=== PATIENT | male | born 1940 | race Caucasian/White ===

== ENCOUNTER → 2020-09-11 13:02 | Outpatient (CLI) | payer OTHER, SELFPAY ==
--- NOTE | 2020-09-11 13:13 | XR_ITS ---
PROCEDURE: XR CHEST 2V CLINICAL HISTORY: COUGH COMPARISON: No exams were available for comparison FINDINGS: Prior CABG with mild cardiomegaly. No CHF. Mild pleural thickening along the left lateral hemithorax with blunting of the left CP angle. There are no previous exams available to ascertain if this is acute or chronic. Right lung is clear. No acute bony abnormalities. IMPRESSION: Mild cardiomegaly. Blunting of the left CP angle which may be related to pleural effusion or chronic changes. Chest CT or left lateral decubitus exam may provide further evaluation. Dictated by: Marcello Figueroa MD 09/11/2020 15:10 Marcello Figueroa MD in [place] 09/11/2020 15:10
== END ==
PROVIDERS: PCP Family Medicine; Visit Provider Family Medicine
DX: R05 Cough (principal)
CPT/HCPCS: 71046

== ENCOUNTER → 2020-09-17 08:22 | Outpatient (CLI) | payer MEDICARE, SELFPAY ==
--- NOTE | 2020-09-17 08:33 | CT_ITS ---
PROCEDURE: CT CHEST WO CON CLINICAL INDICATION: COUGH Follow-up abnormal chest x-ray COMPARISON: CR XR CHEST 2V from 09/11/2020 TECHNIQUE: Axial images obtained with sagittal and coronal reformats. All CT scans at the facility use one or more dose reduction, viz: automated exposure control, ma/kV adjustment per patient size (including targeted exams where dose is matched to indication, i.e. head), or iterative reconstruction technique. FINDINGS: There has been a prior median sternotomy. Extensive coronary artery calcifications are present. Fat is present within the anterior wall the right lateral ventricle. This may be an incidental finding or could be seen with infarction. 3 mm noncalcified nodule right upper lobe anteriorly image 27. Calcified granuloma right upper lobe. There is some atelectatic or fibrotic changes present in the lung bases. There is pleural thickening in the left posterior hemithorax. Hyperdensities are present at this region may be due to calcifications or clips. Small loculated effusion noted posteriorly on the left. Atelectatic changes are present in the left lung base. No acute bony finding. IMPRESSION: Loculated left pleural effusion posteriorly. Punctate hyperdensities are present at this region may be due to clips or calcifications. There is some pleural thickening in the left lung base with mild left basilar atelectasis. Atelectatic or fibrotic changes are present in the right lung base. Dictated by: Marcello Figueroa MD 09/18/2020 14:50 Marcello Figueroa MD in [place] 09/18/2020 14:50
== END ==
PROVIDERS: PCP Family Medicine; Visit Provider Family Medicine
DX: R05 Cough (principal)
CPT/HCPCS: 71250

== ENCOUNTER 2020-09-18 14:29 | Observation (INO) | payer MEDICARE, SELFPAY ==
[2020-09-18] VITALS (17 sets, daily range): BP systolic 70–123; BP diastolic 45–94; PULSE 60–104; RESP 12–20; TEMP 36.6–36.8; O2SAT 92–97; BMI 34.3; BMI 34.4
--- NOTE | 2020-09-18 14:14 | ECG_ITS ---
APPROVED REPORT Exam: Resting ECG HR:95 bpm ECG Measurements Heart Rate 95 AXES [place] 202 P 234 QRSd 164 QRS -88 QT 430 T 23 QTc 540 Conclusion Unusual P axis, possible ectopic atrial rhythm with fusion complexes Right bundle branch block Left anterior fascicular block Bifascicular block Inferior infarct, age undetermined Anterolateral infarct, age undetermined Abnormal ECG Electronically signed by : Irvin Dejesus, 09/18/2020 20:43:58
--- NOTE | 2020-09-18 14:46 | HMH.EDGENADL ---
ED Disposition Clinical Impression: Hypotension Qualifiers: Hypotension type: unspecified hypotension type Qualified Code(s): I95.9 - Hypotension, unspecified Chest pain Qualifiers: Chest pain type: unspecified Qualified Code(s): R07.9 - Chest pain, unspecified Disposition: Admitted as Observation Condition on Discharge: Fair - Critical Care Critical Care Time: Yes Attestation: On 09/18/20, the high probability of a clinically significant, sudden or life threatening deterioration of the following system(s) required my full and direct attention, intervention and personal management. The time I documented below is in addition to time spent performing reported procedures but includes the following listed in this critical care notation. Total Critical Care Time: 30 Vital system(s) involved:: Circulatory Failure My critical care processes included: Assessment & monitoring of V/S, Initial and Re-exams, Data Review/Interpretation, Coordinating Care, Medication Orders and management, Documentation Medical Decision Making - Enoc Inquiry Pt receiving controlled substance: No Vital Signs: 09/18/20 14:34 09/18/20 15:00 09/18/20 15:30 Temperature 97.9 F Temperature Source Oral Pulse Rate 68 60 Pulse Rate [Right Brachial] 104 H Respiratory Rate 20 20 18 Blood Pressure 82/52 L 78/51 L Blood Pressure [Right Arm] 90/62 L Blood Pressure Mean 59 57 Blood Pressure Mean [Right Arm] 71 Blood Pressure Source Blood Pressure Source [Right Arm] Automatic Cuff 02 Sat by Pulse Oximetry 96 93 L 96 Oxygen Delivery Method Room Air 09/18/20 15:46 09/18/20 15:47 09/18/20 16:00 Temperature Temperature Source Pulse Rate 85 85 89 Pulse Rate [Right Brachial] Respiratory Rate 18 18 17 Blood Pressure 70/45 L 71/47 L 96/56 L Blood Pressure [Right Arm] Blood Pressure Mean 49 52 Blood Pressure Mean [Right Arm] Blood Pressure Source Manual Cuff/ Auscultation Blood Pressure Source [Right Arm] 02 Sat by Pulse Oximetry 95 95 94 L Oxygen Delivery Method Room Air 09/18/20 16:30 09/18/20 16:34 09/18/20 17:00 Temperature Temperature Source Pulse Rate 87 86 81 Pulse Rate [Right Brachial] Respiratory Rate 18 14 14 Blood Pressure 103/62 L 108/70 L 111/71 Blood Pressure [Right Arm] Blood Pressure Mean 79 78 Blood Pressure Mean [Right Arm] Blood Pressure Source Automatic Cuff Blood Pressure Source [Right Arm] 02 Sat by Pulse Oximetry 92 L 94 L 93 L Oxygen Delivery Method Room Air Room Air 09/18/20 17:15 Temperature Temperature Source Pulse Rate 74 Pulse Rate [Right Brachial] Respiratory Rate 12 Blood Pressure Blood Pressure [Right Arm] Blood Pressure Mean Blood Pressure Mean [Right Arm] Blood Pressure Source Blood Pressure Source [Right Arm] 02 Sat by Pulse Oximetry 93 L Oxygen Delivery Method - Lab Data Lab Results 09/18/20 14:35: WBC 11.0 H, RBC 4.52 L, Hgb 15.2, Hct 45.7, MCV 101.2 H, MCH 33.6 H, MCHC 33.2, RDW 13.3, Plt Count 231, MPV 8.1, Neut % (Auto) 76.9, Lymph % (Auto) 14.5, [place] % (Auto) 7.1, Eos % (Auto) 1.1, Baso % (Auto) 0.4, Neut # (Auto) 8.5 H, Lymph # (Auto) 1.6, [place] # (Auto) 0.8, Eos # (Auto) 0.1, Baso # (Auto) 0.1 09/18/20 14:35: Sodium 137, Potassium 4.1, Chloride 100, Carbon Dioxide 30, Anion Gap 11.1, BUN 33 H, Creatinine 1.80 H, Estimated Creat Clear 54, Estimated GFR 37 L, Est GFR ( Amer) 44 L, Glucose 161 H, Calcium 9.5, Troponin I < 0.01 09/18/20 14:35: NT-Pro-B Natriuret Pep 1770 H 09/18/20 16:00: Lactate 1.1 Result diagrams: 09/18/20 14:35 09/18/20 14:35 Orders (Tests/Meds): ED MEDICATIONS Generic Name Dose Route Start Last Admin Trade Name Freq PRN Reason Stop Dose Admin Sodium Chloride 1,000 mls @ 999 mls/hr 09/18/20 16:00 09/18/20 16:01 Sod Chlor 0.9% 1000ml Bag IV 09/18/20 17:00 999 mls/hr .Q1H1M BETSY Administration Iopamidol 50 ml 09/18/20 17:33 09/18/20 17:35 Iopamidol-370 (76%);100
[2020-09-18 15:08] LABS: Basophils # 0.1 K/mm3 (0-0.2); Basophils % 0.4 % (0.1-2.0); Eosinophils # 0.1 K/mm3 (0.0-0.4); Eosinophils % 1.1 % (0.1-12.0); Hematocrit 45.7 % (42.0-52.0); Hemoglobin 15.2 g/dL (14.1-18.0); Lymphocytes # 1.6 K/mm3 (0.7-4.5); Lymphocytes % 14.5 % (10-50); Mean Corpuscular HGB Conc 33.2 g/dL (31.8-35.4); Mean Corpuscular Hemoglobin 33.6 pg (27.0-31.2); Mean Corpuscular Volume 101.2 fl (80-94); Mean Platelet Volume 8.1 fl (7.4-10.4); Monocytes # 0.8 K/mm3 (0.1-1.0); Monocytes % 7.1 % (1.7-9.3); Neutrophils # 8.5 K/mm3 (1.8-7.8); Neutrophils % 76.9 % (37.0-80.0); Platelet Count 231 K/mm3 (142-424); Red Blood Count 4.52 M/mm3 (4.60-6.20); Red Cell Distribution Width 13.3 % (11.5-17.5)
[2020-09-18 15:11] LABS: Chloride 100 mmol/L (98-107); Potassium 4.1 mmoL/L (3.5-5.1); Sodium 137 mmol/L (136-145)
[2020-09-18 15:14] LABS: Anion Gap 11.1 mEq/L (5-15); Blood Urea Nitrogen 33 mg/dl (9-20); Carbon Dioxide 30 mmol/L (22.0-30.0); Creatinine Clearance Estimated 54 mL/min (50-200); Estimated Glomerular Filt Rate 37 ml/min (>60); GFR (African American) 44 ML/MIN (>60)
[2020-09-18 15:15] LABS: Calcium 9.5 mg/dl (8.4-10.2); Glucose 161 mg/dl (74-100)
[2020-09-18 15:37] LABS: Troponin I < 0.01 ng/ml (0.00-0.034)
--- NOTE | 2020-09-18 15:54 | XR_ITS ---
PROCEDURE: XR CHEST PORTABLE CLINICAL HISTORY: WEAKNESS Chest pain COMPARISON: CR XR CHEST 2V from 09/11/[address] CHEST WO CON from 09/17/2020 FINDINGS: There has been a prior CABG. There is mild cardiomegaly without failure. The lungs are clear without infiltrates, suspicious nodules, or pleural effusions. No acute bony abnormalities. IMPRESSION: Cardiomegaly otherwise negative Dictated by: Marcello Figueroa MD 09/18/2020 16:57 Marcello Figueroa MD in [place] 09/18/2020 16:57
--- NOTE | 2020-09-18 16:22 | HMH.CNCARD ---
History of Present Illness Consult date: 09/18/20 Requesting physician: Anirudh Yan Consult reason: chest pain Chief complaint: chest pain History of present illness: 80-year-old male presented to ED with complaints of chest pain. Patient states he was currently seen by his PCP and was told to go to the emergency room due to the possibility of having a heart attack. Patient complains of discomfort of the left arm for the past few days. States at times the discomfort will become intense but then seems to resolve with rest. Patient states increased shortness of breath that began a few days ago. Patient states the last time he was having increased shortness of breath he was told he had an irregular heart rhythm and was prescribed Xarelto. Patient states that was several years ago. 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 Patient states he is followed by cardiology at [facility]. States he did see his director data management a few months ago and was told he was in good health. Patient states he has not had a complete cardiac work-up for a few years. Patient is hypotensive today. Patient denies dizziness or palpitations. EKG revealed unusual P axis, right bundle branch block, inferior infarct, anterior lateral infarct with a heart rate of 95 bpm. This rhythm does resembles pulmonary hypertension or possible PE. Would recommend CTA of the chest to rule out PE. Patient denies history of hypertension or hyperlipidemia. Patient states he does have history of COPD and has currently been treated for bronchitis with antibiotics in the past few weeks. Patient denies a cough. No swelling noted of the lower extremities. Patient admits to alcohol consumption of 2 shot glasses of bourbon a day. Patient denies tobacco use. Troponin x1 is negative. Discussed plan of care with Dr. Mclean. In review of the ECG rhythm, this could possibly present pulmonary hypertension or possible PE. Recommend CTA of the chest to rule out PE. Will obtain echocardiogram to assess LV function and valve status. Pending on the results of the CTA and echocardiogram, medication and treatment therapies may be recommended. Please notify cardiology of any changes in patient status. Thank you for allowing cardiology to participate in the care of this patient. [facility] History I have reviewed the patient's past medical history: Yes *Have you ever received a pneumonia vaccine?: Yes *Have you received a flu vaccine this season?: Yes - *Social History *Occupational Status:: other *Travel in the last 8 weeks: Inside the [place] Family Hx:: Unable to obtain Meds Home Medications Medication Instructions Recorded Confirmed Type ALPRAZolam [Alprazolam 0.25mg 0.25 mg PO DIRECTED PRN 09/18/20 09/18/20 History Tab] Citalopram Hydrobromide 20 mg PO DAILY 09/18/20 09/18/20 History [Citalopram 20mg Tablet] Isosorbide Mononitrate [Imdur 60mg 60 mg PO DAILY 09/18/20 09/18/20 History ER tablet] [place]-3S/Dha/Epa/Fish Oil [Fish 1 each PO DAILY 09/18/20 09/18/20 History Oil 1,000 mg Softgel] Rivaroxaban [Xarelto 10mg tablet] 10 mg PO DAILY 09/18/20 09/18/20 History Simvastatin 20 mg PO DAILY 09/18/20 09/18/20 History Tamsulosin HCl 0.4 mg PO DAILY 09/18/20 09/18/20 History Temazepam [Restoril] 30 mg PO DAILY 09/18/20 09/18/20 History lisinopriL [Lisinopril] 20 mg PO DAILY 09/18/20 09/18/20 History Exam Vital signs and Labs for Last 24 Hours: Temp Pulse Resp BP Pulse Ox 97.9 F 85 18 71/47 L 95 09/18/20 14:34 09/18/20 15:47 09/18/20 15:47 09/18/20 15:47 09/18/20 15:47 Laboratory Results - last 24 hr 09/18/20 14:35: WBC 11.0 H, RBC 4.52 L, Hgb 15.2, Hct 45.7, MCV 101.2 H, MCH 33.6 H, MCHC 33.2, RDW 13.3, Plt Count 231, MPV 8.1, Neut % (Auto) 76.9, Lymph % (Auto) 14.5, [place] % (Auto) 7.1, Eos % (Auto) 1.1, Baso % (Auto) 0.4, Neut # (Auto) 8.5 H, Lymph # (Auto) 1.6, [place] # (Auto) 0.8, Eos # (Auto) 0.1, Baso # (Auto) 0.1
[2020-09-18 16:30] LABS: Lactic Acid 1.1 mmol/L (0.7-2.1)
--- NOTE | 2020-09-18 16:52 | CT_ITS ---
PROCEDURE: CT ANGIO CHEST CLINCIAL INDICATION: r/o pe Shortness of breath COMPARISON: CT CT CHEST WO ELEANOR from 09/17/2020 TECHNIQUE: IV Contrast: 50ML Isovue 370 Axial images obtained with sagittal and coronal reformats. All CT scans at the facility use one or more dose reduction, viz: automated exposure control, ma/kV adjustment per patient size (including targeted exams where dose is matched to indication, i.e. head), or iterative reconstruction technique. FINDINGS: No evidence of aortic aneurysm or dissection. No evidence of pulmonary embolus. There has been a prior median sternotomy with CABG. There is mild cardiomegaly. Fatty infiltration noted in the left cardiac apex consistent with an old infarction with some thickening of the wall. There is severe coronary artery calcification. There is evidence of old granulomatous disease. There is some minimal paraseptal emphysematous changes in the lung apices. Noncalcified subpleural pulmonary nodule noted in the right upper lobe anteriorly image 35 at 4 mm. Fibrotic/atelectatic changes are present in the right lower lobe posteriorly. Small loculated pleural effusion noted in the left lung base posteriorly with some punctate calcifications. This is unchanged. Upper abdominal images show colonic diverticulosis. No evidence of diverticulitis. There is stranding of the perinephric renal fat which is nonspecific. IMPRESSION: 1. No evidence of pulmonary embolus. 2. Prior CABG with severe coronary artery calcification. 3. No change in the loculated pleural effusion in the left lung base 4. 4 mm right upper lobe nodule nonspecific. Consider six-month follow-up to confirm stability. Dictated by: Marcello Figueroa MD 09/19/2020 06:15 Marcello Fiugeroa MD in [place] 09/19/2020 06:15
--- NOTE | 2020-09-18 16:57 | PC.NURSE ---
Dr. Yan speaking with Rios Odonnell
[2020-09-18 17:06] LABS: NT Pro Brain Natriuretic Pep. 1770 pg/mL (0-450)
--- NOTE | 2020-09-18 17:24 | PC.NURSE ---
pt gone to ct
--- NOTE | 2020-09-18 17:44 | PC.NURSE ---
pt back from ct
--- NOTE | 2020-09-18 18:36 | PC.NURSE ---
ILIANA COCHRAN spoke with Dr. Mclean
[2020-09-18 19:03] LABS: Troponin I < 0.01 ng/ml (0.00-0.034)
--- NOTE | 2020-09-18 19:23 | PC.NURSE ---
Called for update on covid test, 30 min left. tech here for transfer via wheelchair to 2nd floor in full PPE for pending covid
--- NOTE | 2020-09-18 19:32 | PC.NURSE ---
PT ARRIVED TO FLOOR VIA W/C FROM ED W/STAFF AT 193
[2020-09-19] VITALS (7 sets, daily range): BP systolic 109–155; BP diastolic 51–89; PULSE 60–100; RESP 16–18; TEMP 36.4–36.8; O2SAT 93–95; BMI 34.2; BMI 34.3
--- NOTE | 2020-09-19 03:03 | ECG_ITS ---
APPROVED REPORT Exam: Resting ECG HR:86 bpm ECG Measurements Heart Rate 86 AXES PA P 85 QRSd 148 QRS -48 QT 412 T 45 QTc 493 Conclusion Atrial flutter with variable AV block with premature ventricular or aberrantly conducted complexes Right bundle branch block Left anterior fascicular block Bifascicular block Inferior infarct, age undetermined Anterolateral infarct, age undetermined Abnormal ECG Electronically signed by : Irvin Dejesus, 09/19/2020 17:46:29
--- NOTE | 2020-09-19 04:59 | PC.NURSE ---
Patient admitted to the floor at 1935 and was admitted for Chest Pain. Patient did not c/o of CP upon arrival to floor. 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 Patient touched this nurse on the hips with both hands and stated I better watch it because this thing is getting big Patient received Cardizem 240 mg PO for new onset of A Flutter (see Provider Notification), most recent ECG states indicates A Flutter resolved. Patient resting comfortably with eyes closed. Will continue to monitor for any acute changes.
--- NOTE | 2020-09-19 07:11 | HMH.HP ---
*Admission Date: 09/18/20 *Chief complaint: Chest pain *History of present illness: 80-year-old male seen in the office yesterday in follow-up for bronchitis with development of some left axillary chest pain. In the office he was seen by Dr. Fan who felt like the patient did not look well and had concerns based on an abnormal EKG and he was sent over to the emergency department for rapid evaluation. Initial troponin in the emergency department was unremarkable. Cardiology did not feel like the source of pain was cardiac in nature and recommended evaluation for pulmonary embolism. Patient underwent CTA which was negative for pulmonary embolism and he was admitted for his chest pain. Overnight patient is had serial negative troponins. This morning he denies any chest pain. He reports chest pain was in the left axilla and was nonradiating. He did note dyspnea on exertion. He denied orthopnea. Patient has a history of coronary artery disease with CABG in 1994. Is at that time when he quit smoking. Patient has followed up routinely with his sumac tanner Dr. Cortez with his last visit being 1 month ago. Patient was also found to have some mild acute kidney injury. Overnight patient ruled out for admission but did have an episode of a flutter that responded to administration of oral diltiazem [facility] History I have reviewed the patient's past medical history: Yes Medical History: Reports:: Atherosclerotic Heart Disease, Hypertension, Myocardial Infarction Denies:: Diabetes Mellitus Type 2 *Have you ever received a pneumonia vaccine?: Yes *Have you received a flu vaccine this season?: Yes Other Surgeries: Yes: Appendectomy, Other (tonsilectomy) - *Social History Smoking Status: Never smoker Alcohol Intake: never *Occupational Status:: retired Household Members: spouse *Travel in the last 8 weeks: None Family Hx:: Cancer, Heart Attack Review of Systems - Constitutional Denies anorexia, Denies body ache(s) - Eyes Reports blind spots, Reports blurry vision - ENT Denies abnormal hearing, Denies change in voice - *Cardiovascular Reports chest pain, Reports shortness of breath, Reports shortness of breath with activity - *Respiratory Reports chest congestion, Reports cough, Reports shortness of breath, Reports shortness of breath with activity, Denies change in phlegm color, Denies coughing up blood, Denies pain on inspiration, Denies pain with cough - *Gastrointestinal Denies abdominal pain, Denies belching, Denies bloating - *Genitourinary Denies difficulty urinating, Denies difficulty with ejaculations - *Musculoskeletal Denies abnormal walking, Denies joint pain - Integumentary/Breasts Denies hair loss, Denies bleeding lesions - *Neurologic Denies abnormal walking, Denies abnormal hearing - Psychiatric Denies abnormal sleep pattern Meds Home Medications Medication Instructions Recorded Confirmed Type ALPRAZolam [Alprazolam 0.25mg 0.25 mg PO DIRECTED PRN 09/18/20 09/18/20 History Tab] Citalopram Hydrobromide 20 mg PO DAILY 09/18/20 09/18/20 History [Citalopram 20mg Tablet] Isosorbide Mononitrate [Imdur 60mg 60 mg PO HS 09/18/20 09/18/20 History ER tablet] [place]-3S/Dha/Epa/Fish Oil [Fish 1 each PO DAILY 09/18/20 09/18/20 History Oil 1,000 mg Softgel] Rivaroxaban [Xarelto 10mg tablet] 10 mg PO DAILY 09/18/20 09/18/20 History Simvastatin 20 mg PO HS 09/18/20 09/18/20 History Tamsulosin HCl 0.4 mg PO DAILY 09/18/20 09/18/20 History Temazepam [Restoril] 30 mg PO HS 09/18/20 09/18/20 History lisinopriL [Lisinopril] 20 mg PO HS 09/18/20 09/18/20 History Allergies Allergy/AdvReac Type Severity Reaction Status Date / Time No Known Allergies Allergy Verified 09/18/20 16:49 Exam Vital signs and Labs for Last 24 Hours: Temp Pulse Resp BP Pulse Ox 97.8 F 79 17 155/89 H 95 09/19/20 04:00 09/19/20 04:00 09/19/20 04:00 09/19/20 04:00 09/19/20 04:00 Magdalena
[2020-09-19 07:38] LABS: Basophils % 0.3 % (0.1-2.0); Eosinophils # 0.2 K/mm3 (0.0-0.4); Eosinophils % 1.6 % (0.1-12.0); Hematocrit 42.8 % (42.0-52.0); Hemoglobin 14.1 g/dL (14.1-18.0); Lymphocytes # 1.8 K/mm3 (0.7-4.5); Lymphocytes % 15.9 % (10-50); Mean Corpuscular Hemoglobin 32.5 pg (27.0-31.2); Mean Corpuscular Volume 98.6 fl (80-94); Mean Platelet Volume 8.1 fl (7.4-10.4); Monocytes # 0.8 K/mm3 (0.1-1.0); Monocytes % 7.3 % (1.7-9.3); Neutrophils # 8.3 K/mm3 (1.8-7.8); Neutrophils % 74.8 % (37.0-80.0); Platelet Count 190 K/mm3 (142-424); Red Blood Count 4.34 M/mm3 (4.60-6.20); Red Cell Distribution Width 13.2 % (11.5-17.5); White Blood Count 11.1 K/mm3 (4.8-10.8)
[2020-09-19 07:44] LABS: Anion Gap 10.1 mEq/L (5-15); Blood Urea Nitrogen 26 mg/dl (9-20); Calcium 8.9 mg/dl (8.4-10.2); Carbon Dioxide 28 mmol/L (22.0-30.0); Chloride 103 mmol/L (98-107); Creatinine Clearance Estimated 88 mL/min (50-200); Estimated Glomerular Filt Rate 65 ml/min (>60); GFR (African American) 78 ML/MIN (>60); Glucose 104 mg/dl (74-100); Potassium 4.1 mmoL/L (3.5-5.1); Sodium 137 mmol/L (136-145)
--- NOTE | 2020-09-19 08:46 | HMH.PHAVTE ---
[facility] Pharmacy VTE Monitoring - Patient Demographics Admission date: 09/18/20 Report Date: 09/19/20 Time: 08:47 Allergies/Adverse Reactions: Patient Allergies No Known Allergies Allergy (Verified 09/18/20 16:49) Height: 1.83 m Weight: 114.532 kg Patient Problems: Current Active Problems Hypotension (Acute) CAD (coronary artery disease) (Acute) S/P CABG (coronary artery bypass graft) (Acute) Pleural effusion, left (Acute) Atrial flutter (Acute) Atypical chest pain (Acute) - VTE Risk Labs: VTE Related Lab Results Hgb 14.1 g/dL (14.1-18.0) 09/19/20 07:26 Hct 42.8 % (42.0-52.0) 09/19/20 07:26 Plt Count 190 K/mm3 (142-424) 09/19/20 07:26 BUN 26 mg/dl (9-20) H 09/19/20 07:26 Creatinine 1.10 mg/dl (0.66-1.25) D 09/19/20 07:26 Estimated Creat Clear 88 mL/min (50-200) 09/19/20 07:26 Was VTE Risk Assessment Performed: Yes VTE Score: 1 VTE Risk Level: Very Low Risk - Prophylaxis VTE Prophylaxis Ordered?: Yes Types of VTE Prophylaxis: TEDS Knee High, Pharmacological Pharmacologic Type: Other (XARELTO)
--- NOTE | 2020-09-19 08:54 | HMH.PHAINT ---
home medication list verified using list from outpatient pharmacy and cardiology office
--- NOTE | 2020-09-19 09:30 | PC.NURSE ---
patient had xarelto so unable to have heart cath today and will do tomorrow.
--- NOTE | 2020-09-19 10:08 | HMH.PNCARD ---
Subjective Date: 09/19/20 Time: 09:00 Principal diagnosis: Chest pain Interval history: 80-year-old male presented to ED with complaints of chest pain yesterday afternoon. Patient states he had currently been seen by his PCP and was told to go to the emergency room due to the possibility of having a heart attack. Patient complains of discomfort of the left arm for the past few days. States at times the discomfort will become intense but then seems to resolve with rest. Patient states increased shortness of breath that began a few days ago. Patient states the last time he was having increased shortness of breath he was told he had an irregular heart rhythm and was prescribed Xarelto. Patient states that was several years ago. 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 Patient states he is followed by cardiology at [facility]. 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 Patient states he has not had a complete cardiac work-up for a few years. Patient is hypotensive today. Patient denies dizziness or palpitations. Patient denies chest pain, tightness or pressure. Patient does continue to planing of shortness of breath especially with exertion. No swelling noted of the lower extremities noted. Patient denies dizziness or palpitations. Vital signs are stable. gig tender reveals sinus rhythm with right bundle branch block. PCP stated this a.m., that patient had an episode of atrial flutter and was given Cardizem. Patient has now converted over to sinus rhythm. CTA of the chest was performed due to possibility of pulmonary emboli. There was no evidence of pulmonary embolus but there was noted a 4 mm right upper lobe nodule. This will be under the management and deferred to PCP. Echocardiogram was performed this a.m. waiting the results. Due to patient having his Xarelto this a.m., we will postpone his left heart catheterization until tomorrow morning. Patient is not to have any more Xarelto until after his procedure tomorrow. Discussed left heart catheterization with patient and . Discussed risk and benefits of the left heart catheterization. Patient verbalized understanding and is agreeable to procedure. CTA of chest:IMPRESSION: 1. No evidence of pulmonary embolus. 2. Prior CABG with severe coronary artery calcification. 3. No change in the loculated pleural effusion in the left lung base 4. 4 mm right upper lobe nodule nonspecific. Consider six-month follow-up to confirm stability. Thank you for allowing cardiology to participate in the care of this patient. Exam Vital signs and Labs for Last 24 Hours: Temp Pulse Resp BP Pulse Ox 98.1 F 76 16 127/77 93 L 09/19/20 08:00 09/19/20 08:00 09/19/20 08:00 09/19/20 08:00 09/19/20 08:00 Laboratory Results - last 24 hr 09/18/20 14:35: WBC 11.0 H, RBC 4.52 L, Hgb 15.2, Hct 45.7, MCV 101.2 H, MCH 33.6 H, MCHC 33.2, RDW 13.3, Plt Count 231, MPV 8.1, Neut % (Auto) 76.9, Lymph % (Auto) 14.5, [place] % (Auto) 7.1, Eos % (Auto) 1.1, Baso % (Auto) 0.4, Neut # (Auto) 8.5 H, Lymph # (Auto) 1.6, [place] # (Auto) 0.8, Eos # (Auto) 0.1, Baso # (Auto) 0.1 09/18/20 14:35: Sodium 137, Potassium 4.1, Chloride 100, Carbon Dioxide 30, Anion Gap 11.1, BUN 33 H, Creatinine 1.80 H, Estimated Creat Clear 54, Estimated GFR 37 L, Est GFR ( Amer) 44 L, Glucose 161 H, Calcium 9.5, Troponin I < 0.01 09/18/20 14:35: NT-Pro-B Natriuret Pep 1770 H 09/18/20 16:00: Lactate 1.1 09/18/20 18:25: Troponin I < 0.01 09/19/20 07:26: WBC 11.1 H, RBC 4.34 L, Hgb 14.1, Hct 42.8, MCV 98.6 H, MCH 32.5 H, MCHC 33.0, RDW 13.2, Plt Count 190, MPV 8.1, Neut % (Auto) 74.8, Lymph % (Auto) 15.9, [place] % (Auto) 7.3, Eos % (Auto) 1.6, Baso % (Auto) 0.3, Neut # (Auto) 8.3 H, Lymph # (Auto) 1.8, [place] # (Auto) 0.8, Eos # (Auto) 0.2, Baso # (Auto) 0.0 09/19/20 07:26: Sodium 137, Potassium 4.1, Chloride 103, Carbon Dioxide 28, Anion Gap 10.1, BUN 26 H, Creatinin
--- NOTE | 2020-09-19 17:49 | PC.NURSE ---
Pt has been pleasant this shift. Heart cath rescheduled for tomorrow d/t pt taking xarelto this morning. Pt has been in chair for the greater part of the day. Pt continues on RA. Lung sounds CTA. Pt has been NSR/ Sinus arrhythmia on tele this shift. No other acute changes or complaints at this time.
--- NOTE | 2020-09-19 20:00 | CA_ITS ---
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 Velocity 290.00 cm/s RAP Estimate 10.00 mmHg RVSP 43.70 mmHg Left Ventricle Left atrium is mildly enlarged, left ventricle is normal size, mild concentric left ventricular hypertrophy, visually estimated ejection fraction 50% with no regional wall motion abnormality, diastolic parameters are inconclusive. Right Ventricle Right atrium and right ventricle are mildly enlarged with normal contractility. Aortic Valve Aortic valve is minimally thickened and fibrosed, there is no aortic stenosis or aortic insufficiency. Mitral Valve Mitral valve grossly normal, there is trace mitral regurgitation. Tricuspid Valve Tricuspid grossly normal, there is trace tricuspid regurgitation, tricuspid regurgitation jet velocity is inadequate for calculation of the right ventricular systolic pressure. Pulmonic Valve Pulmonic valve is poorly visualized. Great Vessels Aortic root is normal size. Pericardium No significant pericardial effusion noted. Conclusion 1. Mildly enlarged left atrium, normal left ventricular size, mild concentric left ventricular hypertrophy, visually estimated ejection fraction 50% with no obvious regional wall motion abnormality, diastolic parameters are inconclusive. 2. Mildly enlarged right atrium and right ventricle, contractility of the right ventricle is normal. 3. Trace mitral and tricuspid regurgitation. 4. No significant pericardial effusion noted. Electronically signed by : Ehsan Rodriguez, 09/20/2020 15:01:52
--- NOTE | 2020-09-19 20:05 | PC.NURSE ---
Patient was very irritated and agitated when in room for assessment. Patient has refused all medications with the exception of fluids. N/S 100 ml Hour. Will continue to monitor for any acute changes.
--- NOTE | 2020-09-19 22:27 | ECG_ITS ---
APPROVED REPORT Exam: Resting ECG HR:68 bpm ECG Measurements Heart Rate 68 AXES VA P 73 QRSd 144 QRS 5 QT 460 T 51 QTc 489 Conclusion Atrial flutter with variable AV block with premature ventricular or aberrantly conducted complexes Right bundle branch block Inferior infarct, age undetermined Anterolateral infarct, age undetermined Abnormal ECG Electronically signed by : Irvin Dejesus, 09/21/2020 18:13:22
--- NOTE | 2020-09-19 22:33 | PC.NURSE ---
Patient in A Flutter on monitor, ECG confirmed. Called MD to report. Awaiting call back for orders.. Will continue to monitor for any acute changes
[2020-09-20] VITALS: BP 128/71; PULSE 60; PULSE 65; RESP 16; TEMP 36.6; O2SAT 94
--- NOTE | 2020-09-20 00:31 | PC.NURSE ---
2330 received patient from room 215, patient has been aggitated and impulsive prior to arriving to room 219. patient converted to atrial flutter. upon arriving to room 219 patient in atrial flutter 4:1 conduction with rate in the 60s and 70s. dr. ma paged to clarify amiodarone drip. dr. ma notified of heart rate of 60s-70s, sr. anil asked what previous rate had been, was reported 60s to 70s in aflutter. communication order received to hold amiodarone at this time.
--- NOTE | 2020-09-20 02:33 | PC.NURSE ---
0130 patient extremely aggitation, up out of bed, pulling monitoring devices off and threatening to hit staff. decreased stimulation from room by removing extra staff members and allowing patient to voice concerns. patient disoriented to place, time and situation.0140 able to get patient to take po xanax as ordered.
[2020-09-20 04:00] VITALS: BP 143/86; PULSE 60; PULSE 61; RESP 17; TEMP 36.6; O2SAT 95
[2020-09-20 05:03] VITALS: BMI 34.1
--- NOTE | 2020-09-20 05:42 | PC.NURSE ---
shift summary patient was transferred to stepdown to start amiodarone drip for atrial flutter. rate was 60s to 70s after amiodarone order clarified amiodarone drip was held and stepdown status not needed. patient has remained on recorder helper seismograph showing atrial flutter with rate sustaining 60-70s. vs have been wnl. continues to be on r/a. denies cp, soa, nausea,vomiting. has been anxious, restless, aggitated, impulsive and at times borderline combative. treated with xanax, patient remains confused, restless and impulsive but able to redirect patient. breath sound clear throughout. voiding clear yellow urine. bed alarm on, call light within reach, instructed multiple times to not attempt to get out of bed without assistance. voiced understanding but needs frequent redirection.
--- NOTE | 2020-09-20 07:17 | HMH.ACPN2 ---
Internal Medicine - PN: Subj *Date: 09/20/20 *Time: 07:17 Interval history: Patient was restless most of the night. Argumentative with staff. Required frequent reorientation and redirection. This morning he is pleasant and conversant to talk to. He is oriented to person, month and even place momentarily. He is frequently trying to get out of the bed or out of his chair and I do hear the patient telling staff he needs to go upstairs. Exam Vital signs and Labs for Last 24 Hours: Temp Pulse Resp BP Pulse Ox 97.9 F 61 17 143/86 H 95 09/20/20 04:00 09/20/20 04:00 09/20/20 04:00 09/20/20 04:00 09/20/20 04:00 Laboratory Results - last 24 hr 09/19/20 07:26: WBC 11.1 H, RBC 4.34 L, Hgb 14.1, Hct 42.8, MCV 98.6 H, MCH 32.5 H, MCHC 33.0, RDW 13.2, Plt Count 190, MPV 8.1, Neut % (Auto) 74.8, Lymph % (Auto) 15.9, Burnett % (Auto) 7.3, Eos % (Auto) 1.6, Baso % (Auto) 0.3, Neut # (Auto) 8.3 H, Lymph # (Auto) 1.8, Burnett # (Auto) 0.8, Eos # (Auto) 0.2, Baso # (Auto) 0.0 09/19/20 07:26: Sodium 137, Potassium 4.1, Chloride 103, Carbon Dioxide 28, Anion Gap 10.1, BUN 26 H, Creatinine 1.10 D, Estimated Creat Clear 88, Estimated GFR 65, Est GFR ( Amer) 78 D, Glucose 104 H D, Calcium 8.9 I & O for Last 24 hours: Intake & Output 09/17/20 09/18/20 09/19/20 09/20/20 11:59 11:59 11:59 11:59 Intake Total 2700 / 2700 480 / 480 Output Total 1000 / 1000 800 / 800 Balance 1700 / 1700 -320 / -320 Weight 252 lb 8 oz 252 lb - Constitutional no acute distress - *Routine Respiratory Exam Present: crackles (Left base) - *Routine Cardiovascular Exam Present: RRR - *Routine Abdominal Exam Present: soft, normoactive bowel sounds. Absent: tenderness - *Routine Extremities Exam Absent: cyanosis, clubbing, edema Assessment and Plan (1) Atypical chest pain Status: Acute Category: Medical Code(s): R07.89 - Other chest pain (2) CAD (coronary artery disease) Status: Acute Category: Medical Code(s): I25.10 - Atherosclerotic heart disease of [place] coronary artery without angina pectoris (3) S/P CABG (coronary artery bypass graft) Status: Acute Category: Surgical Code(s): Z95.1 - Presence of aortocoronary bypass graft (4) Pleural effusion, left Status: Acute Category: Medical Code(s): J90 - Pleural effusion, not elsewhere classified (5) Atrial flutter Status: Acute Category: Medical Code(s): I48.92 - Unspecified atrial flutter (6) Hypotension Status: Acute Qualifiers: Hypotension type: unspecified hypotension type Qualified Code(s): I95.9 - Hypotension, unspecified Category: Medical Code(s): I95.9 - Hypotension, unspecified - Assessment and plan all Dx Assessment and Plan for all problems:: 1. Left heart catheterization today. 2. If no intervention is required from [facility] patient will be discharged home later today. Do believe his mental status changes are secondary to sundowning. Patient was given lorazepam 1 mg this morning
[2020-09-20 07:42] VITALS: PULSE 90
[2020-09-20 08:00] VITALS: BP 143/85; PULSE 92; RESP 18; TEMP 36.6; O2SAT 93
--- NOTE | 2020-09-20 09:44 | P.PN_ITS ---
Subjective Date: 09/20/20 Time: 09:44 Principal diagnosis: Chest pain Interval history: 80-year-old white male sitting in chair in no acute distress but is quickly agitated when discussing current situation and plans for any procedures. Patient's is in the room with him and states that she has never seen him this agitated or upset before. Patient stated [place] is in [place] and these women are trying to trick me . Patient is very fixated on the fact that he was moved from room 215-219 last evening and does not understand why. When trying to explain that his heart rate became irregular and we needed to administer a different medication he did not want to hear it and states he is going to go home and go to [place] to have further care. Patient's heart rate after being moved to 219 was noted to be 60 bpm and the medication (amiodarone) was canceled. Shortly after this exchange, the patient's daughter did arrive and I left the room to allow her to try to calm him down. Patient was given a dose of Xanax during the night and Ativan earlier this m orning which may be exacerbating some underlying confusion. I explained to the and the daughter that I did not feel comfortable having the patient have a cardiac catheterization in his current mental state. We will cancel it today and tentatively schedule it for tomorrow if the patient is back at his baseline and wishes to proceed with the procedure here at this hospital. Exam Vital signs and Labs for Last 24 Hours: Temp Pulse Resp BP Pulse Ox 97.8 F 92 H 18 143/85 H 93 L 09/20/20 08:00 09/20/20 08:00 09/20/20 08:00 09/20/20 08:00 09/20/20 08:00 I & O for Last 24 hours: Intake & Output 09/17/20 09/18/20 09/19/20 09/20/20 11:59 11:59 11:59 11:59 Intake Total 2700 / 2700 480 / 480 Output Total 1000 / 1000 800 / 800 Balance 1700 / 1700 -320 / -320 Weight 252 lb 8 oz 252 lb Narrative: Not examined due to the patient's confused and agitated state Telemetry appears to show sinus rhythm at about 100 bpm. Progress Note: A&P (1) Atypical chest pain Status: Acute (2) CAD (coronary artery disease) Status: Acute (3) S/P CABG (coronary artery bypass graft) Status: Acute (4) Pleural effusion, left Status: Acute (5) Atrial flutter Status: Acute (6) Hypotension Status: Acute Assessment and Plan for All Diagnoses:: 1. Cardiac catheterization canceled for today. 2. Acute confusional state likely exacerbated by antianxiety medication given overnight. 3. Continue diltiazem and pravastatin. Holding Xarelto for planned cardiac catheterization or tentatively plan cardiac catheterization tomorrow.
--- NOTE | 2020-09-20 10:15 | PC.NURSE ---
Patient will need a wheel chair rather than a cane/walker due to nonambulatory status. Patient vee also need a hospital bed due to medical conditions which requires positioning of the body in ways not feasible with and ordinary bed.
--- NOTE | 2020-09-20 13:18 | PC.NURSE ---
THIS MORNING DURING SHIFT CHANGE PT WAS VERY UPSET AND AGITATED. PT WAS SWITCHED ROOMS LAST NIGHT AND WAS VERY UPSET OVER THE ROOM HE WAS IN. PT IS BLIND AND WAS CONTINUOUSLY TRYING TO GET UP ON HIS OWN. ALARM WAS REMOVED B/C IT WAS MAKING PT MORE AGITATED. PT AMBUATED IN THE ARMENDARIZ WITH STAFF INSISTING ON CARRYING HIS COAT AND SACK OF BELONGINGS WHILE TRYING TO WALK WITH CANE. PT WAS ASKING FOR STAFF TO TAKE HIM DOWN TO THE ER AND AFTER WE STATED WE COULD NOT TAKE HIM TO THE ER HE BECAME VERY AGITATED AND STARTED TO SWING HIS CANE. AND NURSE ASSISTED PT BACK TO THE ROOM. NOTIFIED PT'S AND SHE ARRIVED TO THE HOSPITAL SHORTLY AFTERWARDS. PT'S DAUGHTER ALSO ARRIVED. PT CONTINUED TO REMAIN UPSET. WHEN JUAN MANUEL CARLSON FROM CARDIOLOGY WENT INTO PT'S ROOM HE ALSO BECAME VERY AGITATED WITH HIM. JUAN MANUEL CARLSON EXPLAINED TO FAMILY THAT PT IS WAY TO UPSET AT THE MOMENT TO EVEN CONSIDER HEART CATH DUE TO THE FACT THEY WILL HAVE TO GO THROUGH THE GROIN AND PT WILL HAVE TO LAY FLAT AND AT THIS TIME PT DOES NOT EVEN WANT TO SIT DOWN IN ONE SPOT LONGER THAN A FEW MINUTES. PCP CALLED AND STATED HE FELT IT WOULD BE BEST TO GO ON AND LET PT BE DISCHARGED AND SEND ALL OF HIS RECORDS TO HIS [facility] AT [facility]. FAMILY WAS AGREEABLE AND THEY FELT THAT WOULD BE THE BEST OPTION FOR PT. APPOINTMENT WAS MADE WITH ON 09/26 AND PT WILL FOLLOW UP WITH [facility] IN [place] ON 10/23. ALL RECORDS WERE FAXED TO OFFICE AND FAMILY WAS GIVEN A DISC FROM RADIOLOGY TO TAKE TO FOLLOW UP APPOINTMENT.
--- NOTE | 2020-10-15 15:34 | HMH.DCSUM ---
General - General Admission date:: 09/18/20 Discharge date: 09/20/20 HPI HPI: 80-year-old male seen in the office yesterday in follow-up for bronchitis with development of some left axillary chest pain. In the office he was seen by Dr. Fan who felt like the patient did not look well and had concerns based on an abnormal EKG and he was sent over to the emergency department for rapid evaluation. Initial troponin in the emergency department was unremarkable. Cardiology did not feel like the source of pain was cardiac in nature and recommended evaluation for pulmonary embolism. Patient underwent CTA which was negative for pulmonary embolism and he was admitted for his chest pain. Overnight patient is had serial negative troponins. This morning he denies any chest pain. He reports chest pain was in the left axilla and was nonradiating. He did note dyspnea on exertion. He denied orthopnea. Patient has a history of coronary artery disease with CABG in 1994. Is at that time when he quit smoking. Patient has followed up routinely with his welt treater Dr. Cortez with his last visit being 1 month ago. Patient was also found to have some mild acute kidney injury. Overnight patient ruled out for admission but did have an episode of a flutter that responded to administration of oral diltiazem Hospital Course Hospital Course: Jet was admitted with plans to proceed with [facility]. This required holding of his anticoagulant. As hospitalization progressed the patient developed significant sundowning. He exhibited paranoid behaviors. Patient was somewhat calmed by the presence of family. Decision was mde to have jet follow up with his welt treater. Discussion was had with the family regarding prolonging hospitalization vs. discharging to a more familiar environment(home). Patient was discharged and will follow up in office as an outpatient. Objective Vital signs: Temp Pulse Resp BP Pulse Ox 97.8 F 92 H 18 143/85 H 93 L 09/20/20 08:00 09/20/20 08:00 09/20/20 08:00 09/20/20 08:00 09/20/20 08:00 DS: Diagnosis - Discharge Diagnosis (1) Atypical chest pain Status: Acute (2) CAD (coronary artery disease) Status: Acute (3) S/P CABG (coronary artery bypass graft) Status: Acute (4) Pleural effusion, left Status: Acute (5) Atrial flutter Status: Acute (6) Hypotension Status: Acute Discharge Plan - Patient Discharge Instructions ACTIVITY: Continue current activity DIET: continue same diet Patient Instructions: DI for Surgical Site Infection, DI for Chest Pain, DI for Hypotension - Follow up Plan Follow up with: Kamron Fan MD [Primary Care Provider] - 09/26/20 10:15 am Disposition: Home, Self-Senior Living Medications: Home Medications Medication Instructions Recorded Confirmed Type Citalopram Hydrobromide 20 mg PO DAILY 09/18/20 09/19/20 History [Citalopram 20mg Tablet] Isosorbide Mononitrate [Imdur 60mg 60 mg PO HS 09/18/20 09/19/20 History ER tablet] [place]-3S/Dha/Epa/Fish Oil [Fish 1 each PO DAILY 09/18/20 09/18/20 History Oil 1,000 mg Softgel] Tamsulosin HCl 0.4 mg PO DAILY 09/18/20 09/19/20 History Temazepam [Restoril] 30 mg PO HSP PRN 09/18/20 09/19/20 History lisinopriL [Lisinopril] 20 mg PO HS 09/18/20 09/19/20 History ALPRAZolam [Xanax 0.5mg tab] 0.5 mg PO Q6HP PRN 09/19/20 09/19/20 History Rivaroxaban [Xarelto 20mg Tablet*] 20 mg PO DAILY 09/19/20 09/19/20 History Simvastatin [Zocor 10mg] 10 mg PO HS 09/19/20 09/19/20 History Prescriptions/Medication Reconciliation: Continued Temazepam [Restoril] 30 mg PO HSP PRN PRN Reason: Insomnia Tamsulosin HCl 0.4 mg PO DAILY lisinopriL [Lisinopril] 20 mg PO HS Isosorbide Mononitrate [Imdur 60mg ER tablet] 60 mg PO HS ALPRAZolam [Xanax 0.5mg tab] 0.5 mg PO Q6HP PRN PRN Reason: Anxiety Simvastatin [Zocor 10mg] 10 mg PO HS Citalopram Hydrobromide
== END 2020-09-20 12:00 | disposition home or self-care (01) ==
LOC: ER 16:57 → 2ND 17:26
PROVIDERS: Admitting Provider Family Medicine; Emergency Provider Emergency Medicine; PCP Family Medicine; Visit Provider Family Medicine
DX: R07.89 Other chest pain (principal); Z95.1 Presence of aortocoronary bypass graft; I10 Essential (primary) hypertension; I25.2 Old myocardial infarction; Z79.899 Other long term (current) drug therapy; J90 Pleural effusion, not elsewhere classified; I48.92 Unspecified atrial flutter; I95.9 Hypotension, unspecified; I48.91 Unspecified atrial fibrillation; Z79.01 Long term (current) use of anticoagulants; I25.118 Atherosclerotic heart disease of native coronary artery with other forms of angina pectoris; R06.9 Unspecified abnormalities of breathing
CPT/HCPCS: 36415; 71045; 71275; 80048; 83605; 83880; 84484; 85025; 87040; 93005; 93306; 96374; 99284; G0378; Q9967; U0003

== ENCOUNTER → 2023-06-23 11:19 | Outpatient (CLI) | payer MEDICARE, SELFPAY ==
--- NOTE | 2023-06-23 11:31 | XR_ITS ---
FINAL REPORT TECHNIQUE: Chest PA & Lateral CLINICAL HISTORY: PNEUMONIA COMPARISON: 09/18/2020 FINDINGS: 2 views of the chest were performed. There is mild cardiomegaly. Sternotomy wires are present. There is mild airspace opacity at the left base, probably representing a small focus of pneumonia. The right lung is clear. There are no pleural effusions. There is no pneumothorax. The bony thorax appears intact. IMPRESSION: Probable left basilar pneumonia. Reviewed, Interpreted and Dictated by Nazario Calabrese MD Transcribed by Michelle Velasquez Authenticated and [facility]
== END ==
LOC: RAD 11:21
PROVIDERS: PCP Family Medicine; Visit Provider Family Medicine
DX: J18.9 Pneumonia, unspecified organism (principal)
CPT/HCPCS: 71046

== ENCOUNTER 2024-09-27 10:10 | Outpatient (CLI) | payer MEDICARE, SELFPAY ==
[2024-09-27 11:00] LABS: Basophils # 0.1 K/mm3 (0-0.2); Basophils % 0.9 % (0.1-2.0); Eosinophils # 0.2 K/mm3 (0.0-0.4); Eosinophils % 1.9 % (0.1-12.0); Hemoglobin 15.1 g/dL (14.1-18.0); Lymphocytes # 1.5 K/mm3 (0.7-4.5); Lymphocytes % 17.1 % (10-50); Mean Corpuscular HGB Conc 32.8 g/dL (31.8-35.4); Mean Corpuscular Hemoglobin 30.6 pg (27.0-31.2); Mean Corpuscular Volume 93.3 fl (80-94); Mean Platelet Volume 10.9 fl (7.4-10.4); Monocytes # 0.8 K/mm3 (0.1-1.0); Monocytes % 8.6 % (1.7-9.3); Neutrophils # 6.4 K/mm3 (1.8-7.8); Neutrophils % 71.2 % (37.0-80.0); Platelet Count 188 K/mm3 (142-424); Red Blood Count 4.93 M/mm3 (4.60-6.20); Red Cell Distribution Width 14.6 % (11.5-17.5)
[2024-09-27 11:35] LABS: Albumin Level 4.5 g/dl (3.5-5.0)
[2024-09-27 11:36] LABS: Chloride 101 mmol/L (98-107); Potassium 4.5 mmoL/L (3.5-5.1); Sodium 139 mmol/L (136-145)
[2024-09-27 11:38] LABS: Alanine Aminotransferase 14 U/L (12-78); Amylase 61 U/L (30-110); Anion Gap 8.5 mEq/L (5-15); Aspartate Amino Transferase 27 U/L (17-59); Blood Urea Nitrogen 13 mg/dl (9-20); Carbon Dioxide 34 mmol/L (22.0-30.0); Estimated Glomerular Filt Rate 92 ml/min (>60); GFR (African American) 112 ML/MIN (>60)
[2024-09-27 11:39] LABS: Albumin/Globulin Ratio 1.6 (1.1-1.8); Alkaline Phosphatase 69 U/L (38-126); Bilirubin,Total 0.9 mg/dl (0.2-1.3); Globulin 2.9 g/dL (1.3-3.2); Glucose 91 mg/dl (74-100); Lipase 104 U/L (23-300); Total Protein,Serum 7.4 g/dl (6.3-8.2)
[2024-09-27 11:49] LABS: Total Iron Binding Capacity 387 ug/dL (261-462)
[2024-09-27 12:15] LABS: Ferritin 22.4 ng/ml (17.9-464)
== END 2024-09-27 23:59 | disposition home or self-care (01) ==
LOC: LAB 10:11
PROVIDERS: PCP Family Medicine; Visit Provider Internal Medicine Gastroenterology
DX: K74.69 Other cirrhosis of liver (principal); B19.20 Unspecified viral hepatitis C without hepatic coma; R10.9 Unspecified abdominal pain; R63.4 Abnormal weight loss
CPT/HCPCS: 36415; 80053; 82150; 82728; 83550; 83690; 85025

== ENCOUNTER 2024-10-19 10:09 | Outpatient (CLI) | payer MEDICARE, SELFPAY ==
--- NOTE | 2024-10-19 10:15 | CT_ITS ---
FINAL REPORT TECHNIQUE: Pre-and postcontrast axial imaging of the abdomen and pelvis was obtained.This study was performed with techniques to keep radiation doses as low as reasonably achievable, (ALARA). Individualized dose reduction technique using automated exposure control or adjustment of mA and/or kV according to the patient's size were employed. CLINICAL HISTORY: Periumbilical abdominal pain and weight loss FINDINGS: The lung bases demonstrate a chronic small left pleural effusion and left lower lobe atelectasis. There is diffuse fatty infiltration of the liver without focal liver lesion identified. The gallbladder is present. The spleen, adrenal glands, and pancreas are unremarkable. There is no hydronephrosis or solid renal mass. On precontrast imaging, no renal stones are identified. There is no small bowel obstruction or focal small bowel wall thickening. There is no lymphadenopathy or ascites. The appendix is not visualized. There are no secondary findings of appendicitis. There is pandiverticulosis. Short segment wall thickening is seen in the distal sigmoid colon and proximal rectum without surrounding inflammatory changes which could be related to incomplete distention. However, mass not excluded. There are postoperative changes of prior right inguinal hernia repair. There is no lymphadenopathy or ascites. No acute osseous abnormalities identified. IMPRESSION: Areas of short segment wall thickening in the distal sigmoid and upper rectum which could be related to incomplete distention. Mass not excluded. Recommend correlation with recent colonoscopy. If none has been performed, consider follow-up colonoscopy. Fatty infiltration of the liver. Reviewed, Interpreted and Dictated by Gali Villegas MD Transcribed by Maggie Gomez Authenticated and . [facility]
[2024-10-19] MEDS: SODIUM CHLORIDE 0.9% 10ML SYR (RAD ONLY) 10 ML IV (10:52)
[2024-10-19] MEDS: IOPAMIDOL-370 (76%);100ML BOTTLE 75 ML IV (10:52)
== END 2024-10-19 23:59 | disposition home or self-care (01) ==
LOC: RAD 10:10
PROVIDERS: PCP Family Medicine; Visit Provider Internal Medicine Gastroenterology
DX: R10.33 Periumbilical pain (principal); R63.4 Abnormal weight loss
CPT/HCPCS: 74178; Q9967

== ENCOUNTER 2024-10-27 12:11 | Day surgery (SDC) | payer MEDICARE, SELFPAY ==
[2024-10-25 14:44] VITALS: BMI 30.3
[2024-10-27 12:49] VITALS: BP 158/71; PULSE 64; RESP 18; TEMP 36.5; O2SAT 93
[2024-10-27] MEDS: LACTATED RINGERS 1000ML 1,000 ML 50 ML IV (13:12)
--- NOTE | 2024-10-27 14:03 | EXP.ANES.CKL ---
[facility] Disclaimer: The information contained in this section may have been updated after the patient was seen, as this information can be updated by other users. Medical History Bilateral visual loss Stroke Myocardial infarction Hypertension Hyperlipidemia Depression Anxiety Pleural effusion, left CAD (coronary artery disease) Surgical History H/O inguinal hernia repair History of tonsillectomy History of appendectomy Hx of CABG Family History Mother Colon cancer Social History (Updated 10/27/24 @ 13:10 by Leyda James RN) Smoking Status: Never smoker alcohol intake: current substance use type: denies use current occupational status: retired Travel in the last 8 weeks?: None household members: spouse caffeine: Yes [facility] Anesthesia Checklist Patient Identification Patient Identification: Arm Band Structural Data Admitted From: Home Planned Operative Procedure/s: Colonoscopy Consent for Planned Operative Procedure(s) Verified: Yes Verified Documents: Surgical Consent and History and Physical NPO Status Verified Time NPO: 12:00 (finished prep) Additional verifications Anesthesia Reactions: No Airway Assessment Mallampati Score:: Class II C-Spine Mobility Assessed: Yes TMJ Mobility Assessed: Yes Dentition: Dentures-good fit (lower partial) Neurological Assessment Level of Consciousness: Awake, Alert and Appropriate Anesthesia Plan Anesthesia Risk discussed: Yes Anesthesia Plan: Verified ASA Class: III Anesthesia Type: MAC
[2024-10-27 14:48] VITALS: O2SAT 97
--- NOTE | 2024-10-27 14:56 | P.HP_ITS ---
History of Present Illness *Admission Date: 10/27/24 *Reason for visit:: Rectal bleeding and sigmoid possible mass on CAT scan *History of present illness: Mr. Max is an 84-year-old gentleman who is here for diagnostic colonoscopy secondary to rectal bleeding and possible mass on CAT scan in the sigmoid colon he has had 20 to 25 pound unintentional weight loss in the last 3 to 4 months. The examination is deemed medically necessary for diagnostic colonoscopy. The patient has been seen, interviewed and examined prior to the procedure by both myself and the anesthesia provider. [facility] Disclaimer: The information contained in this section may have been updated after the patient was seen, as this information can be updated by other users. Medical History Bilateral visual loss Stroke Myocardial infarction Hypertension Hyperlipidemia Depression Anxiety Pleural effusion, left CAD (coronary artery disease) Surgical History H/O inguinal hernia repair History of tonsillectomy History of appendectomy Hx of CABG Family History Mother Colon cancer Social History (Updated 10/27/24 @ 14:04 by Julio Grimm CRNA) Smoking Status: Never smoker alcohol intake: current substance use type: denies use current occupational status: retired Travel in the last 8 weeks?: None household members: spouse caffeine: Yes Have you lived/traveled outside US in past 30 days?: No Contact w/someone who lives/traveled outside US past 30 days?: No Exposure to someone with infectious disease in past 14 days?: No Do you have a fever (greater than 100.4 F or 38 C)?: No Have you tested positive for COVID-19?: No Exposed to someone with COVID-19 in past 14 days?: No Do you have a sore throat?: No Do you have a cough?: No Do you have any weakness?: No Are you experiencing any nausea/vomitting?: No Do you have any diarrhea?: No Are you experiencing any unusual bleeding?: No Do you have any muscle aches/pain?: No Do you have any abdominal pain?: No Are you experiencing loss of taste or smell?: No Other Medical History Have you received the Flu Vaccine for this season: No Have you received the Pneumonia Vaccine: Yes Review of Systems Review of Systems Review of systems (narrative): Negative *Cardiovascular Comments: Negative *Gastrointestinal Comments: Negative *Genitourinary Comments: Negative *Musculoskeletal Comments: Negative *Neurologic Comments: Negative Meds Home Medications and Allergies Home Medications ?Medication ?Instructions ?Recorded ?Confirmed ?Type citalopram 20 mg tablet 20 mg PO DAILY Depression 09/18/20 10/25/24 History isosorbide mononitrate 60 mg 60 mg PO HS Heart disease 09/18/20 10/25/24 History tablet,extended release 24 hr tamsulosin 0.4 mg capsule 0.4 mg PO DAILY prostate 09/18/20 10/25/24 History temazepam 30 mg capsule 30 mg PO HSP PRN Insomnia 09/18/20 10/27/24 History alprazolam 0.5 mg tablet 0.5 mg PO Q6HP PRN Anxiety 09/19/20 10/25/24 History simvastatin 10 mg tablet 10 mg PO HS Cholesterol 09/19/20 10/25/24 History aspirin 81 mg tablet,delayed 81 mg PO DAILY 09/27/24 10/25/24 History release (Adult Aspirin Regimen) escitalopram oxalate 10 mg tablet 10 mg PO DAILY 09/27/24 10/25/24 History rivaroxaban 20 mg tablet (Xarelto) 20 mg PO DAILY 09/27/24 10/25/24 History sotalol 80 mg tablet 80 mg PO Q12H 09/27/24 10/25/24 History peg 3350-electrolytes 236 240 ml PO Q10M colonscopy #4,000 mL 10/25/24 Rx gram-22.74 gram-6.74 gram-5.86 gram solution (Golytely) New Prescriptions to Start Prescriptions: Allergies Allergy/AdvReac Type Severity Reaction Status Date / Time No Known Allergies Allergy Verified 10/27/24 13:01 Exam Data for Last 24 hours Vital signs and Labs for Last 24 Hours: Temp Pulse Resp BP Pulse Ox O2 Del Method O2 Flow Rate 97.7 F 64 18 158/71 H 93 L Nasal Cannula 5 10/27/24 12:49 10/27/24 12:49 10/27/24 12:49 10/27/24 12:49 10/27/24 12:49 10/27/24 14:48 10/27/24 14:48 I & O for Last 24 hours: Intake & Output 10/24/24 10/25/24 10/26/24 10/27/24 23:59 23:59 23:59 23:59 Weight 230 lb *Routine HEENT Exam Head: Present normocephalic Eye: Present EOMI and PERRL ENT: Present mucous membranes moist *Routine Neck Exam Neck: Present supple *Routine Respiratory Exam Respiratory: Present CTA bilaterally *Routine Cardiovascular Exam Cardiovascular: Present RRR *Routine Abdominal Exam Abdominal: Present soft and normoactive bowel sounds; Absent tenderness *Routine Rectal Exam Rectal:: deferred *Routine Genitalia Exam Genitalia:: deferred *Routine Extremities Exam Extremities: Absent cyanosis, clubbing or edema *Routine Skin Exam Skin: Present warm; Absent rash *Routine Neurological Exam Neurological: Present alert and oriented X3 Assessment and Plan *Assessment and plan (1) Rectal bleeding: Status: Acute Category: Medical Code(s): K62.5 - Hemorrhage of anus and rectum (2) Abnormal weight loss: Status: Acute Category: Medical Code(s): R63.4 - Abnormal weight loss (3) Bloating: Status: Acute Category: Medical Code(s): R14.0 - Abdominal distension (gaseous) (4) Abnormal CT scan, colon: Status: Acute Category: Medical Code(s): R93.3 - Abnormal findings on diagnostic imaging of other parts of digestive tract Plan A/P: 1. Rectal bleeding with abnormal weight loss, bloating and CAT scan [place] sigmoid colonic wall thickening cannot rule out sigmoid mass is the preprocedural diagnosis. The patient will be anesthetized/sedated using MAC sedation. The patient has been seen and examined. Cardiac and lung assessment prior to the examination is stable. Proceed with planned diagnostic colonoscopy.
--- NOTE | 2024-10-27 14:58 | HMH.PROCNOTE ---
[facility] Procedure Note Date: 10/27/24 Time: 15:04 Procedure Note:: Sigmoidoscopy procedure Report: Sigmoidoscopy with hemorrhoid banding (and aborted colonoscopy due to poor/inadequate bowel preparation) Endoscopist: Ji Ott II, MD Referring physician: Kianna Fan M.D. Date of Procedure: October 27, 2024 Equipment: Olympus 190 variable stiffness pediatric colonoscope Sedation: MAC sedation Indication: Mr. Max is an 84-year-old gentleman who has been having bright red rectal bleeding and had a 20 to 25 pound weight loss over the last 4 months. He also has noted bloating. His recent CAT scan showed areas of short segment wall thickening in the distal sigmoid colon and upper rectum and mass could not be excluded. The patient did go to [facility] in March 2024 with rectal bleeding and did not have a colonoscopy. He did have a colonoscopy 3 to 4 years ago. The patient does have some chronic constipation. He reports incomplete defecation. Procedure: Prior to the procedure, a history and physical exam was performed, and patient's medications and allergies were reviewed. The risks, benefits and alternatives of the sedation and procedure were discussed with the patient. All questions were answered and informed consent was obtained. The patient was brought to the procedure room. Patient identification and proposed procedure were verified by the physician and the nurse. The patient was placed in a left lateral decubitus position and the scope was passed under direct vision. Throughout the procedure, the patient's blood pressure, pulse, and oxygen saturations were monitored continuously. The colonoscopy was accomplished without difficulty. The patient tolerated the procedure well. Findings: On digital rectal examination there was normal rectal tone. There were no external hemorrhoids. The scope was then inserted through the anal canal to the rectum and advanced to 40 cm. There was a marked amount of brown liquid and solid stool content and the preparation was poor and inadequate. The procedure was aborted and the scope was withdrawn. The area in question in the sigmoid colon showed extensive sigmoid diverticulosis but there were no masses or polyps. Upon withdrawal into the rectum the scope was retroflexed and there were grade 2-3 internal hemorrhoids. 3 columns of hemorrhoids were banded using 3 bands with excellent ligation effect. The procedure was then ended. Impression: 1. Inadequate bowel preparation with aborted colonoscopy 2. Extensive sigmoid diverticulosis 3. Grade 2-3 internal hemorrhoids status post band ligation x 3 Plan: I do suspect that the bleeding was from these internal hemorrhoids. I would like for him to remain on bulking psyllium fiber supplementation. I would also consider a hemorrhoid suppository for further hemorrhoidal bleeding. It is possible that he had prior diverticular hemorrhage but he is not presently bleeding.
[2024-10-27 15:07] VITALS: BP 109/56; PULSE 57; RESP 16; O2SAT 95
[2024-10-27 15:17] VITALS: BP 123/63; PULSE 61; RESP 17; O2SAT 95
[2024-10-27 15:27] VITALS: BP 126/72; PULSE 65; O2SAT 94
[2024-10-27 15:37] VITALS: BP 122/68; PULSE 72; RESP 17; O2SAT 94
--- NOTE | 2024-10-28 08:27 | EXP.ANES.CKL ---
[facility] Disclaimer: The information contained in this section may have been updated after the patient was seen, as this information can be updated by other users. Medical History Bilateral visual loss Stroke Myocardial infarction Hypertension Hyperlipidemia Depression Anxiety Pleural effusion, left CAD (coronary artery disease) Surgical History H/O inguinal hernia repair History of tonsillectomy History of appendectomy Hx of CABG Family History Mother Colon cancer Social History (Updated 10/27/24 @ 14:04 by Julio Grimm CRNA) Smoking Status: Never smoker alcohol intake: current substance use type: denies use current occupational status: retired Travel in the last 8 weeks?: None household members: spouse caffeine: Yes [facility] Anesthesia Checklist Patient Identification Patient Identification: Arm Band Structural Data Admitted From: Home Planned Operative Procedure/s: Bilateral Salpingectomy Consent for Planned Operative Procedure(s) Verified: Yes Verified Documents: Surgical Consent and History and Physical NPO Status Verified Time NPO: 00:00 Additional verifications Anesthesia Reactions: No Airway Assessment Mallampati Score:: Class II C-Spine Mobility Assessed: Yes TMJ Mobility Assessed: Yes Dentition: Good Dentition Neurological Assessment Level of Consciousness: Awake, Alert and Appropriate Anesthesia Plan Anesthesia Risk discussed: Yes Anesthesia Plan: Verified ASA Class: II Anesthesia Type: General
== END 2024-10-27 15:49 | disposition home or self-care (01) ==
PROVIDERS: PCP Family Medicine; Visit Provider Internal Medicine Gastroenterology
PROC: 0DJD8ZZ Inspection of Lower Intestinal Tract, Via Natural or Artificial Opening Endoscopic (ICD-10-PCS; CPT 45378; principal; 2024-10-27 14:00)
DX: K57.30 Diverticulosis of large intestine without perforation or abscess without bleeding (principal); K64.8 Other hemorrhoids; K62.5 Hemorrhage of anus and rectum; R63.4 Abnormal weight loss; R14.0 Abdominal distension (gaseous); R93.3 Abnormal findings on diagnostic imaging of other parts of digestive tract; K59.00 Constipation, unspecified; Z53.8 Procedure and treatment not carried out for other reasons
CPT/HCPCS: 45398; C1889; J7120

== ENCOUNTER 2025-02-16 13:14 | Outpatient (CLI) | payer MEDICARE, SELFPAY ==
--- OUTSIDE RECORDS SUMMARY | 2025-02-16 13:35 | XMS_ITS | Clinical Summary ---
Author Organization [facility] Address [address] [place] [address] Care Team Providers Care Traffic Engineering Director Name Role Phone Don Fan MD Primary Care Provider [phone] Allergies No known active allergies Medications nitroglycerin (NITROSTAT) 0.[address] 1 tablet under the tongue Every 5 (Five) Minutes As Needed for Chest Pain. Take no more than 3 doses in 15 minutes. Active aspirin 81 MG EC tablet Take 1 tablet by mouth Every Night. Active isosorbide mononitrate (IMDUR) 60 MG 24 hr tablet TAKE 1 TABLET EVERY DAY 90 tablet 1 0 Active tamsulosin (FLOMAX) 0.4 MG capsule 24 hr capsule Take 1 capsule by mouth As Needed. Active citalopram (CeleXA) 20 MG tablet Take 1 tablet by mouth Daily As Needed. Active furosemide (LASIX) 20 MG tablet 1 tablet As Needed. 2 Active simvastatin (ZOCOR) 10 MG tablet Take 1 tablet by mouth every night at bedtime. Need lab work for further refills. 90 tablet 3 Active ALPRAZolam (XANAX) 0.5 MG tablet Take 1 tablet by mouth Every 6 (Six) Hours As Needed. 3 Active albuterol sulfate HFA 108 (90 Base) MCG/ACT inhaler 1 puff As Needed. 4 Active escitalopram (LEXAPRO) 10 MG tablet Take 1 tablet by mouth Daily. 4 Active pantoprazole (PROTONIX) 40 MG EC tablet Take 1 tablet by mouth Every 12 (Twelve) Hours. 60 tablet 4 Active polyethylene glycol (MIRALAX) 17 g packet Take 17 g by mouth 2 (Two) Times a Day. 30 packet 4 Active sennosides-docus ate (PERICOLACE) 8.6-50 MG per tablet Take 2 tablets by mouth 2 (Two) Times a Day. 120 tablet 4 Active cefuroxime (CEFTIN) 500 MG tablet Take 1 tablet by mouth 2 (Two) Times a Day. 10 tablet 4 Active Additional Information Patient not taking.Reported on 09/20/2024 zolpidem (AMBIEN) 5 MG tablet Take 1 tablet by mouth At Night As Needed. 5 Active rivaroxaban (Xarelto) 20 MG tablet Take 1 tablet by mouth Daily. 30 tablet 5 5 Active sotalol (BETAPACE AF) 80 MG tablet tablet TAKE 1/2 (ONE-HALF) TABLET BY MOUTH EVERY 12 HOURS 90 tablet 5 Active Active Problems Problem Noted Date Diagnosed Date GI bleed 04/04/2024 Syncope and collapse 09/22/2020 Hypotension 09/22/2020 CKD (chronic kidney disease) 09/22/2020 Typical atrial flutter 12/08/2016 Hypertension, benign 01/02/2016 Coronary artery disease invo lving coronary bypass graft of [place] heart without angina pectoris 01/02/2016 Overview (01/02/2016): a. History of bypass in 1994. b. Cardiolite stress test on 07/17/2008: Mismatch apical defect, EF 60%; medical management for the time being. c. Occasional recurrent exertional dyspnea and chest discomfort. d. Adenosine Cardiolite, 04/23/2009: Abnormal test with an area of both ischemia and scar in the anterior apical segment of the left ventricle, EF 50%. Cerebral vascular disease 01/02/2016 Overview (01/02/2016): a. Previous right retinal artery CVA. b. Status post left retinal artery CVA, January 2008. c. Transesophageal echocardiogram, 02/03/2008, revealing a small PFO. d. Referral to Dr. Loyd at , status post intracardiac echocardiogram revealing no evidence of PFO and negative bubble study, January 2008. Hypercholesterolemia 01/02/2016 Anxiety and depression 01/02/2016 Obesity 01/02/2016 Inguinal hernia 01/02/2016 Immunizations Immunization Administration Dates Next Due COVID-19 (Telesocial) Purple Cap Monovalent 04/03/2021 Fluzone High-Dose 65+YRS 04/10/2018 Fluzone High-Dose 65+yrs 04/01/2023,1011/2021,03/22/2021,2019 Hepatitis A 01/03/2019 Hepatitis B Adult/Adolescent IM 06/15/2018 Influenza, Unspecified 02/29/2020 Shingrix 03/13/2020,01/06/2020,07/05/2019 Tdap 08/22/2015 Zostavax 03/28/2016 Family History Medical History Relation Name Comments Heart attack Brother Gumaro Heart disease a nd Cancer Heart attack Father Odes Sr Colon cancer Mother Heart attack Sister 1 Roya will Covid in 2020 Heart attack Sister 2 Hank Colon can er Relation Name Status Comments Brother Gumaro Father Odes Sr Mother Sister 1 Roya will Sister 2 Hank Social History Tobacco Use Types Packs/Day Years Used Date Smoking Tobacco: Former Cigarettes 0.5 15 0 01/03/1980 - 01/02/1995 Passive Smoke Exposure: Never Smokeless Tobacco: Former Chew Tobacco Cessation:Counseling Given: Not Answered Comments:quit in 1994 Alcohol Use Standard Drinks/Week Comments Yes 4 (1 standard drink = 0.6 oz pur e alcohol) Or more AUDIT-C Answer Date Recorded Q1: How often do you have a drink containing alcohol? 4 or more times a week 04/04/2024 Q2: How many drinks containi ng alcohol do you have on a typical day when you are drinking? 1 or 2 Q3: How often do you have si x or more drinks on one occasion? Never 04/04/2024 Abuse Screen Answer Date Recorded Feels Unsafe at Home or Work/School no 04/04/2024 Feels Threatened by Someone no 12/2023 Does Anyone Try to Keep You From Having Contact with Others or Doing Things Outside Your Home? no 04/04/2024 Physical Signs of Abuse Present no 04/04/2024 Housing Stability Answer Date Recorded Current Living Arrangements home 12/2023 Potentially Unsafe Housing Conditions none 04/04/2024 Disabilities Answer Date Recorded Difficulty Concentrating, Remembering or Making Decisions no 04/04/2024 Difficulty Managing Errands Independently yes 04/04/2024 Education Answer Date Recorded Help with school or training? Not on file Preferred Language Kittitian 04/04/2024 Sex and Gender Information Value Date Recorded Sex Assigned at Not on file Legal Sex Male 10:49 AM EDT Gender Identity Not on file Sexual Orientation Not on file Last Filed Vital Signs Vital Sign Reading Time Taken Comments Blood Pressure 98/62 09/20/2024 1:41 PM EDT Pulse 81 09/20/2024 1:41 PM EDT Temperature 36.6 C (97.8 F) 04/06/2024 11:10 AM EDT Respiratory Rate 18 04/06/2024 12:06 PM EDT Oxygen Saturation 95% 09/20/2024 1:41 PM EDT Inhaled Oxygen Concentration - - Weight 103 kg (227 lb) 09/20/2024 1:41 PM EDT Height 182.9 cm (6') 09/20/2024 1:41 PM EDT Body Mass Index 30.79 09/20/2024 1:41 PM EDT Plan of Treatment Upcoming Encounters Date Type Department Care Team (Late st Contact Info) Description 05/02/2025 2:45 PM EST Office Visit [facility] [address] [place] [phone] Thaddeus Segura III, MD [address] [place], [place] [id number] Health Maintenance Due Date Last Done Comments COLOGUARD 1986 COLON CANCER SCREENING 5 YEA R SIGMOIDOSCOPY 1986 COLONOSCOPY 1986 [address] CANCER SCREENING 1986 CT COLONOGRAPHY 1986 FECAL OCCULT BLOOD TEST 1986 FIT Testing (1 year) 1986 Pneumococcal Vaccine 50+ (1 of 1 - PCV) 1991 RSV Vaccine - Adults (1 - 1- dose 75+ series) 2016 ANNUAL WELLNESS VISIT 12/08/2016 LIPID PANEL 06/13/2022 06/13/2021, 08/28, 07/14/2019, Additional history exists COVID-19 Vaccine (7 - 2023-2 5 season) 2024 03/16/2024, 05/01/2022, 01/09/2022, Additional history exists INFLUENZA VACCINE 03/29/2025 04/01/2023, , 03/22/2021, Additional history exists TDAP/TD VACCINES (2 - Td or Tdap) 08/22/2025 016 ZOSTER VACCINE Completed 03/13/2020, 12/27, 07/05/2019, Additional history exists Procedures Procedure Name Priority Date/Time Associated Diagnosis Comments LIPID PANEL Routine 06/13/2021 10:38 AM EST Hypercholesterolemia from Last 3 Months or Most Recently Relevant to Health Maintenance Results * (ABNORMAL) Lipid Panel (06/13/2021 10:38 AM EST) Total Cholesterol 113 0 - 200 mg/dL 06/14/2021 12:02 AM EST [facility] Triglycerides 99 0 - 150 mg/dL 06/14/2021 12:02 AM EST [facility] HDL Cholesterol 37(L) 40 - 60 mg/dL 06/14/2021 12:02 AM EST [facility] LDL Cholesterol 57 0 - 100 mg/dL 06/14/2021 12:02 AM EST [facility] VLDL Cholesterol 19 5 - 40 mg/dL 06/14/2021 12:02 AM EST [facility] LDL/HDL Ratio 1.52 06/14/2021 12:02 AM EST [facility] Blood Venipuncture / Unknown 06/13/2021 10:38 AM EST 06/13/2021 10:38 AM EST Narrative [facility] - 06/14/2021 12:02 AM EST Cholesterol Reference Ranges (U.S. Department of Health and Human Services ATP III Classifications) Desirable <200 mg/dL Borderline High 200-239 mg/dL High Risk >240 mg/dL Triglyceride Reference Ranges (U.S. Department of Health and Human Services ATP III Classifications) Normal <150 mg/dL Borderline High 150-199 mg/dL High 200-499 mg/dL Very High >500 mg/dL HDL Reference Ranges (U.S. Department of Health and Human Services ATP III Classifcations) Low <40 mg/dl (major risk factor for CHD) High >60 mg/dl ('negative' risk factor for CHD) LDL Reference Ranges (U.S. Department of Health and Human Services ATP III Classifcations) Optimal <100 mg/dL Near Optimal 100-129 mg/dL Borderline High 130-159 mg/dL High 160-189 mg/dL Very High >189 mg/dL Thaddeus Segura III, MD LAB BLOOD ORDERABLES Final Result [facility]
[address] [place] [address], from Last 3 Months or Most Recently Relevant to Health Maintenance Insurance [employer] HMO Advance Directives * CPR (Attempt to Resuscitate) (Latest Code Status on File) Date Activated Date Inactivated Comments 04/04/2024 7:34 AM 04/06/2024 5:46 PM Question Answer Comments Code Status (Patient has no pulse and is not breathing): CPR (Attempt to Resuscitate) Medical Interventions (Patie nt has pulse or is breathing): Full Support * CPR (Attempt to Resuscitate) Date Activated Date Inactivated Comments 09/22/2020 3:09 PM 09/24/2020 3:28 PM Question Answer Comments Code Status (Patient has no pulse and is not breathing): CPR (Attempt to Resuscitate) Medical Interventions (Patie nt has pulse or is breathing): Full Care Teams Traffic Engineering Director Relationship Specialty Start Date End Date Don Fan MD [address] [place] [address] PCP - General 02/08/15
--- NOTE | 2025-02-16 13:36 | PC.NURSE ---
Pt's oxygen was 77% when he walked into PFT lab, pt placed on 2L and recovered to 93%. Pt educated and encouraged to wear oxygen.
== END 2025-02-16 23:59 | disposition home or self-care (01) ==
LOC: RT 13:14
PROVIDERS: PCP Internal Medicine; Visit Provider Internal Medicine
DX: R94.2 Abnormal results of pulmonary function studies (principal); R06.02 Shortness of breath; R09.02 Hypoxemia; Z99.81 Dependence on supplemental oxygen
CPT/HCPCS: 94010; 94727; 94729

== ENCOUNTER 2025-03-29 11:11 | Outpatient (CLI) | payer MEDICARE, SELFPAY ==
--- OUTSIDE RECORDS SUMMARY | 2025-03-29 12:23 | XMS_ITS | Clinical Summary ---
Author Organization [facility] [employer] [facility] Address [address] [place] [address] Care Team Providers Care Elementary Supervisor Name Role Phone Don Fan MD Primary Care Provider [phone] Allergies No known active allergies Medications nitroglycerin [...] disease invo lving coronary bypass graft of [place] heart without angina pectoris 01/02/2016 Overview (01/02/2016): [...] Immunizations Immunization Administration Dates Next Due COVID-19 (Regen) Purple Cap Monovalent 04/03/2021 Fluzone High-Dose 65+YRS [...] or training? Not on file Preferred Language Tajik 04/04/2024 Sex and Gender Information Value Date [...] Description 05/02/2025 2:45 PM EST Office Visit [facility] [address] [place] [phone] Thaddeus Segura III, MD [address] [place], [place] [id number] Health Maintenance Due Date Last Done Comments [...] 06/13/2022 06/13/2021, 08/28, 07/14/2019, Additional history exists INFLUENZA VACCINE 01/27/2025 04/01/2023, , 03/22/2021, Additional history exists COVID-19 Vaccine (2023-2 5 season) 2025 03/16/2024, 05/01/2022, 01/09/2022, Additional history exists TDAP/TD VACCINES (2 - [...] - 200 mg/dL 06/14/2021 12:02 AM EST [facility] Triglycerides 99 0 - 150 mg/dL 06/14/2021 12:02 AM EST [facility] HDL Cholesterol 37(L) 40 - 60 mg/dL 06/14/2021 12:02 AM EST [facility] LDL Cholesterol 57 0 - 100 mg/dL 06/14/2021 12:02 AM EST [facility] VLDL Cholesterol 19 5 - 40 mg/dL 06/14/2021 12:02 AM EST [facility] LDL/HDL Ratio 1.52 06/14/2021 12:02 AM EST [facility] Blood Venipuncture / Unknown 06/13/2021 10:38 AM EST 06/13/2021 10:38 AM EST Narrative [facility] - 06/14/2021 12:02 AM EST Cholesterol [...] III, MD LAB BLOOD ORDERABLES Final Result [facility]
[address] [place] [address], from Last 3 Months or Most Recently [...] pulse or is breathing): Full Care Teams Elementary Supervisor Relationship Specialty Start Date End Date Don Fan MD [address] [place] [address] PCP - General 02/08/15
[2025-03-29 12:27] LABS: C-Reactive Protein 4.1 mg/L (0-4)
[2025-03-30 15:35] LABS: Antinuclear Antibodies (ANA) Negative (Negative)
== END 2025-03-29 23:59 | disposition home or self-care (01) ==
PROVIDERS: PCP Family Medicine; Visit Provider Internal Medicine Pulmonary Disease
DX: J84.9 Interstitial pulmonary disease, unspecified (principal)
CPT/HCPCS: 36415; 86140

== ENCOUNTER 2025-04-11 13:54 | Outpatient (CLI) | payer MEDICARE, SELFPAY ==
--- NOTE | 2025-04-11 14:00 | CT_ITS ---
FINAL REPORT TECHNIQUE: Axial imaging of the chest is obtained after the administration of contrast. 3-D MIP reformatted images were also obtained and reviewed per PE protocol. This study was performed with techniques to keep radiation doses as low as reasonably achievable (ALARA). Individualized dose reduction techniques using automated exposure control or adjustment of mA and/or kV according to the patient's size were employed. CLINICAL HISTORY: sob COMPARISON: 09/18/2020 FINDINGS: The pulmonary arteries are well filled. There is no evidence of pulmonary embolus. Evaluation for aortic dissection is limited secondary to timing of the contrast bolus. The heart is mildly enlarged. No axillary adenopathy is noted. There is a right paratracheal node measuring 21 mm in size, was previously 15 mm in size there is no significant change in appearance of the chronic loculated left pleural effusion. There is a new trace right pleural effusion identified. Chronic left lower lobe atelectasis is stable. Changes of emphysema are once again noted. There is a right upper lobe subpleural 5 mm nodule best seen on image 30, stable. There is no pericardial effusion. Limited evaluation of the upper abdomen is without acute abnormality. No acute osseous abnormality. IMPRESSION: No evidence of pulmonary embolism. Evaluation for aortic dissection is limited secondary to timing of the contrast bolus. The heart is mildly enlarged. There is no significant change in the size or appearance of the chronic loculated left pleural effusion. A new trace right pleural effusion is noted. Reviewed, Interpreted and Dictated by Gali Villegas MD Transcribed by Celi Mario Authenticated and [facility]
[2025-04-11 14:29] LABS: Blood Urea Nitrogen 15 mg/dl (9-20); Creatinine,Serum 0.90 mg/dl (0.66-1.25); Estimated Glomerular Filt Rate 81 ml/min (>60); GFR (African American) 98 ML/MIN (>60)
[2025-04-11] MEDS: 0.9 % SODIUM CHLORIDE 50 ML VIAL 40 ML IV (15:20)
[2025-04-11] MEDS: SODIUM CHLORIDE 0.9% 10ML SYR (RAD ONLY) 10 ML IV (15:21)
[2025-04-11] MEDS: IOPAMIDOL-370 (76%);100ML BOTTLE 85 ML IV (15:21)
== END 2025-04-11 23:59 | disposition home or self-care (01) ==
LOC: RAD 13:56
PROVIDERS: PCP Internal Medicine; Visit Provider Internal Medicine Pulmonary Disease
DX: J90 Pleural effusion, not elsewhere classified (principal); I71.00 Dissection of unspecified site of aorta; I51.7 Cardiomegaly; I26.99 Other pulmonary embolism without acute cor pulmonale; R94.2 Abnormal results of pulmonary function studies
CPT/HCPCS: 36415; 71275; 82565; 84520; 94618; Q9967

== ENCOUNTER 2025-06-06 14:23 | Outpatient (CLI) | payer MEDICARE, SELFPAY ==
--- NOTE | 2025-06-06 14:36 | XR_ITS ---
FINAL REPORT CLINICAL HISTORY: hypoxia,dyspnea FINDINGS: 2 views of the chest were obtained . The heart is moderately enlarged. Patient is status post median sternotomy. There is pulmonary vascular congestion. A moderate left pleural effusion is present, best seen on the lateral view. IMPRESSION: Moderate left pleural effusion. Recommend continued follow-up. Reviewed, Interpreted and Dictated by Nazario Calabrese MD Transcribed by Maggie Gomez Authenticated and [facility]
[2025-06-06 15:28] LABS: Hematocrit 38.3 % (42.0-52.0); Hemoglobin 12.0 g/dL (14.1-18.0); Immature Granulocytes % 0.4 %; Mean Corpuscular HGB Conc 31.3 g/dL (31.8-35.4); Mean Corpuscular Hemoglobin 30.4 pg (27.0-31.2); Mean Corpuscular Volume 97.0 fl (80-94); Nucleated Red Blood Cells % 0 %; Platelet Count 193 K/mm3 (142-424); Red Blood Count 3.95 M/mm3 (4.60-6.20); Red Cell Distribution Width-SD 50.7 fL; White Blood Count 8.5 K/mm3 (4.8-10.8)
[2025-06-06 16:24] LABS: Alanine Aminotransferase 13 U/L (12-78); Albumin Level 3.8 g/dl (3.5-5.0); Alkaline Phosphatase 90 U/L (38-126); Anion Gap 11.7 mEq/L (5-15); Aspartate Amino Transferase 25 U/L (17-59); Bilirubin,Direct 0.1 mg/dl (0.0-0.4); Bilirubin,Indirect 1.2 mg/dL (0.0-0.9); Bilirubin,Total 1.3 mg/dl (0.2-1.3); Bilirubin,Unconjugated 1.2 mg/dL (0.0-1.1); Blood Urea Nitrogen 11 mg/dl (9-20); Calcium 8.6 mg/dl (8.4-10.2); Carbon Dioxide 32 mmol/L (22.0-30.0); Chloride 97 mmol/L (98-107); Cholesterol 92 mg/dl (140-200); Creatinine,Serum 0.90 mg/dl (0.66-1.25); Estimated Glomerular Filt Rate 81 ml/min (>60); GFR (African American) 98 ML/MIN (>60); Glucose 107 mg/dl (74-100); HDL Cholesterol 32 mg/dl (40-60); Magnesium 1.8 mg/dl (1.6-2.3); Potassium 3.7 mmoL/L (3.5-5.1); Sodium 137 mmol/L (136-145); Total Protein,Serum 7.2 g/dl (6.3-8.2); Triglycerides 77 mg/dl (30-150)
[2025-06-06 16:41] LABS: Free T4 (Free Thyroxine) 1.24 ng/dl (0.78-2.19)
[2025-06-06 16:57] LABS: Thyroid Stimulating Hormone 3.08 uIU/mL (0.465-4.68)
== END 2025-06-06 23:59 | disposition home or self-care (01) ==
LOC: LAB 14:24
PROVIDERS: PCP Internal Medicine; Visit Provider Physician Assistant
DX: I25.10 Atherosclerotic heart disease of native coronary artery without angina pectoris (principal); E78.5 Hyperlipidemia, unspecified; I11.0 Hypertensive heart disease with heart failure; I50.30 Unspecified diastolic (congestive) heart failure
CPT/HCPCS: 36415; 71046; 80048; 80061; 80076; 83735; 84439; 84443; 85025

== ENCOUNTER 2025-06-13 14:17 | Outpatient (CLI) | payer MEDICARE, SELFPAY ==
--- NOTE | 2025-06-13 14:20 | XR_ITS ---
FINAL REPORT TECHNIQUE: Two views CLINICAL HISTORY: pleural effusion COMPARISON: 06/06/2025 FINDINGS: CHEST 2 VIEWS: The patient is post CABG. Cardiomegaly remains present. No acute pulmonary density is present. Mediastinal contour is normal. A moderate size left pleural effusion is present, similar to the prior exam. IMPRESSION: Stable chest exam, with a stable moderate size left pleural effusion when compared to the prior exam. Reviewed, Interpreted and Dictated by Cristofer Christiansen MD Transcribed by Celi Mario Authenticated and [facility]
== END 2025-06-13 23:59 | disposition home or self-care (01) ==
LOC: RAD 14:18
PROVIDERS: PCP Internal Medicine; Visit Provider Physician Assistant
DX: J90 Pleural effusion, not elsewhere classified (principal); I51.7 Cardiomegaly; Z95.1 Presence of aortocoronary bypass graft
CPT/HCPCS: 71046

== ENCOUNTER 2025-06-16 11:15 | Outpatient (CLI) | payer MEDICARE, SELFPAY ==
--- NOTE | 2025-06-16 11:15 | CA_ITS ---
APPROVED REPORT EXAM: Comprehensive 2D, Doppler, and color-flow Echocardiogram Liquid Loader: Darling Potts RT(R) Ht: 6 ft 0 in Wt: 219lbs BSA: 2.21 BP: 106/51 mmHg Indications: dyspnea, CAD, HFpEF, hx CABG, AFIB, blind. 2D Dimensions EF AP4 56.30 % GL Strain -9.3 % M-Mode Dimensions RVDd 3.07 cm (0.9-2.6) LA Diam 4.61 cm (1.9-4.0) LVDd 4.93 cm (3.5-5.7) LVDs 3.64 cm (3.5-5.7) IVSd 0.95 cm (0.6-1.1) PWd 0.95 cm (0.6-1.1) EF (Teich) 51.10% FS 26.20% EDV (Teich) 114.40 mL ESV (Teich) 55.90 mL LV Diastology E Decel Time 150 (160-240 msec) E/A Ratio 1.7 Mitral Valve MV E Max Jay. 88.0 (40-130 cm/s) MV A Velocity 52.0 (40-130 cm/s) E/A Ratio 1.68 MV PHT 44.0 ms Left Ventricle The left ventricle is normal size. Left ventricular systolic function is normal. The left ventricular ejection fraction is within the normal range. There is increased left ventricular wall thickness. There is normal LV segmental wall motion. The left ventricular diastolic function is indeterminate. LVEF is 55% Right Ventricle The right ventricle is normal size. The right ventricular systolic function is normal. Atria Left atrium is mildly dilated. Right atrium is mildly dilated. There is no color Doppler evidence of interatrial shunt. Aortic Valve The aortic valve is mildly thickened. There is no hemodynamically significant aortic valvular stenosis. Trace aortic regurgitation is present. Mitral Valve The mitral valve is normal in structure. No evidence of mitral valve stenosis. Mild mitral regurgitation is present. Tricuspid Valve The tricuspid valve leaflets are thin and pliable. Mild tricuspid regurgitation. RVSP is 20-25 mmHg. Pulmonic Valve The pulmonary valve is grossly normal in structure. Trace pulmonic valve regurgitation is present. Great Vessels The aortic root is normal in size. IVC is normal in size and collapses >50% with inspiration. Pericardium There is no pericardial effusion. Other Information Study Quality: Fair Conclusion Normal biventricular systolic function. Mild biatrial dilation. Mild MR, mild TR. Electronically signed by : Amelia Block MD 06/27/2025 12:38:30
--- OUTSIDE RECORDS SUMMARY | 2025-06-16 11:19 | XMS_ITS | Encounter Summary ---
[facility] Address [address] [place] [address] Care Team Providers Care Tax Accountant Name Role Phone Don Fan MD Primary Care Provider [phone] Reason for Visit * Reason Onset Date Comments Med Refill 06/06/2025 - MED REFILL 06/06/2025 Encounter Details Date Type Department Care Team (Late st Contact Info) Description 06/06/2025 Refill [facility] [address] [place] [address] Thaddeus Segura III, MD [address] [place] [id number] Med Refill; - MED REFILL Social History Tobacco Use Types Packs/Day Years Used Date Smoking Tobacco: Former Cigarettes 0.5 15 0 01/03/1980 - 01/02/1995 Passive Smoke Exposure: Never Smokeless Tobacco: Former Chew Comments:quit in 1994 Alcohol Use Standard Drinks/Week [...] or training? Not on file Preferred Language Syrian 04/04/2024 Sex and Gender Information Value Date Recorded Sex Assigned at Not on file Legal Sex Male 10:49 AM EDT Gender Identity Not on file Sexual Orientation Not on file documented as of this encounter Miscellaneous Notes * Telephone Encounter - aMureen Parker RegSched Rep - 06/06/2025 4:06 PM EST Caller: Pham Will Relationship: Emergency Contact Best call back number: [phone] Requested Prescriptions: Requested Prescriptions Pending Prescriptions Disp Refills sotalol (BETAPACE AF) 80 MG tablet tablet 90 tablet 0 Sig: Take 0.5 tablets by mouth Every 12 (Twelve) Hours. Pharmacy where request should be sent: [id number] [address] [facility] [place] - [address] [phone] [facility] [phone] FX Last office visit with prescribing clinician: 09/20/2024 Last telemedicine visit with prescribing clinician: Visit date not found Next office visit with prescribing clinician: Visit date not found Does the patient have less than a 3 day supply: [x] Yes [] No Would you like a call back once the refill request has been completed: [] Yes [] No If the office needs to give you a call back, can they leave a voicemail: [] Yes [] No Nubia Araujo Rep 06/06/25 16:07 EST documented in this encounter Plan of Treatment Upcoming Encounters Date Type Department Care Team (Late st Contact Info) Description 07/04/2025 11:00 AM EST Office Visit [facility] [address] [facility] [address] [place] [address] Thaddeus Segura III, MD [address] [place] [address] documented as of this encounter Visit Diagnoses Not on filedocumented in this encounter Care Teams Tax Accountant Relationship Specialty Start Date End Date Don Fan MD [address] [place] [address] PCP - General 02/08/15 documented as of this encounter
--- OUTSIDE RECORDS SUMMARY | 2025-06-16 11:19 | XMS_ITS | Encounter Summary ---
[facility] Address [address] [place] [address] Care Team Providers Care Test Department Helper Name Role Phone Don Fan MD Primary Care Provider [phone] Encounter Details Date Type Department Care Team (Late st Contact Info) Description 06/07/2025 Telephone [facility] [address] [facility] [address] [place] [address] Thaddeus Segura III, MD [address] [facility] [address] [place] [address] Social History Tobacco Use Types Packs/Day Years [...] or training? Not on file Preferred Language Rwandan 04/04/2024 Sex and Gender Information Value Date Recorded Sex Assigned at Not on file Legal Sex Male 10:49 AM EDT Gender Identity Not on file Sexual Orientation Not on file documented as of this encounter Miscellaneous Notes * Telephone Encounter - Seema Villalobos RegSched Rep - 06/07/2025 4:38 PM EST Received v/m from patient's daughter and returned her call. Appt with Dr. Segura scheduled for 07/04/25 due to medical reasons associated with his spouse. New appt reminder has been mailed. * Telephone Encounter - Dang Bhat RegSched Rep - 06/07/2025 8:58 AM EST LVM FOR DAUGHTER TO CALL BACK FOR AN APPT WITH [facility] documented in this encounter Plan of Treatment Upcoming Encounters Date Type Department Care Team (Late st Contact Info) Description 07/04/2025 11:00 AM EST Office Visit [facility] [address] [facility] [facility] [address] [place] [id number] Thaddeus Segura III, MD [address] [facility] [address] [place] [id number] documented as of this encounter Visit Diagnoses Not on filedocumented in this encounter Care Teams Test Department Helper Relationship Specialty Start Date End Date Don Fan MD [facility] [place] [address] PCP - General 02/08/15 documented as of this encounter
--- OUTSIDE RECORDS SUMMARY | 2025-06-16 11:19 | XMS_ITS | Clinical Summary ---
Author Organization [facility] Address [address] [place] [address] Care Team Providers Care Adult Protective Caseworker Name Role Phone Don Fan MD Primary Care Provider [phone] Allergies No known active allergies Medications nitroglycerin [...] Times a Day. 30 packet 4 Active sennosides-docu sate (PERICOLACE) 8.6-50 MG per tablet Take 2 [...] sotalol (BETAPACE AF) 80 MG tablet tablet Take 0.5 tablets by mouth Every 12 (Twelve) Hours. Need f/u appt for further refills. 90 tablet 5 Active sotalol (BETAPACE AF) 80 MG tablet tablet TAKE 1/2 (ONE-HALF) TABLET BY MOUTH EVERY 12 HOURS 90 tablet 5 025 Discontin ued(Reord er) Active Problems Problem Noted Date Diagnosed Date GI bleed 04/04/2024 Syncope and collapse 09/22/2020 Hypotension 09/22/2020 CKD (chronic kidney disease) 09/22/2020 Typical atrial flutter 12/08/2016 Hypertension, benign 01/02/2016 Coronary artery disease invo lving coronary bypass graft of [employer] heart without angina pectoris 01/02/2016 Overview (01/02/2016): [...] depression 01/02/2016 Obesity 01/02/2016 Inguinal hernia 01/02/2016 Encounters Date Type Department Care Team Description 06/07/2025 Telephone [facility] [address] [facility] [address] [place] [address] Thaddeus Segura III, MD 06/06/2025 Refill [facility] [address] [facility] [address] [place] [address] Thaddeus Segura III, MD Med Refill; - MED REFILL from Last 3 Months Immunizations Immunization Administration Dates Next Due COVID-19 ([employer]) Purple Cap Monovalent 04/03/2021 Fluzone High-Dose 65+YRS 04/10/2018 Fluzone High-Dose 65+yrs 04/01/2023,10/0 11/2021,03/22/2021,2019 Hepatitis A 01/03/2019 Hepatitis B Adult/Adolescent IM [...] or training? Not on file Preferred Language Filipino 04/04/2024 Sex and Gender Information Value Date [...] Description 07/04/2025 11:00 AM EST Office Visit [facility] [address] [place] [address] Thaddeus Segura III, MD [address] [place] [address] Health Maintenance Due Date Last Done Comments [...] , 03/22/2021, Additional history exists COVID-19 Vaccine (7 - Pfizer risk 2023- season) 2025 03/16/2024, 05/01/2022, 01/09/2022, Additional history [...] 0 - 200 mg/dL 06/14/2021 12:02 AM [facility] Triglycerides 99 0 - 150 mg/dL 06/14/2021 12:02 AM [facility] HDL Cholesterol 37(L) 40 - 60 mg/dL 06/14/2021 12:02 AM [facility] LDL Cholesterol 57 0 - 100 mg/dL 06/14/2021 12:02 AM [facility] VLDL Cholesterol 19 5 - 40 mg/dL 06/14/2021 12:02 AM [facility] LDL/HDL Ratio 1.52 06/14/2021 12:02 AM [facility] Blood Venipuncture / Unknown 06/13/2021 10:38 AM EST 06/13/2021 10:38 AM [facility] - 06/14/2021 12:02 AM EST Cholesterol [...] III, MD LAB BLOOD ORDERABLES Final Result [facility]
[address] [place] [address], from Last 3 Months or Most Recently Relevant to Health Maintenance [place] [address] [place] [address] MEDICARE ADVANTAGE HMO Advance Directives * CPR [...] pulse or is breathing): Full Care Teams Adult Protective Caseworker Relationship Specialty Start Date End Date Don Fan MD [address] [place] [address] PCP - General 02/08/15
== END 2025-06-16 23:59 | disposition home or self-care (01) ==
PROVIDERS: PCP Internal Medicine; Visit Provider Physician Assistant
DX: I08.1 Rheumatic disorders of both mitral and tricuspid valves (principal); I11.0 Hypertensive heart disease with heart failure; I50.30 Unspecified diastolic (congestive) heart failure; I25.10 Atherosclerotic heart disease of native coronary artery without angina pectoris; E78.5 Hyperlipidemia, unspecified; Z95.1 Presence of aortocoronary bypass graft; I48.91 Unspecified atrial fibrillation; H54.7 Unspecified visual loss
CPT/HCPCS: 93306